=== PATIENT | male | born 1975 | race Caucasian/White ===

== ENCOUNTER 2018-07-22 09:51 | Emergency (ER) | payer MEDICAID ==
[2018-07-22 09:58] VITALS: O2SAT 99
[2018-07-22 09:59] VITALS: BMI 25.8
[2018-07-22] MEDS ORDERED: Sodium Chloride 0.9% 1,000 ML IV STA (10:49)
--- NOTE | 2018-07-22 10:49 | ED PDOC ---
HPI: General Adult Chief Complaint (Provider): abd pain History Per: Patient (42 y/o male here with ongoing abdominal pain intermittent x 2 months associated with abdominal distention and intermittently improved with simethicone. States he was seen at [facility] and given rx for [employer] and simethicone. Was advised f/u for endoscopy but has not done so yet. Denies any fevers /chills. Has h/o appendectomy. Admits smoking 5-6 cig daily. Notes etoh 1/week. No drug activity. Notes pain made worse with occitan food.) <Anamika Perez - Last Filed: 07/22/18 20:33> <Nay Fiore - Last Filed: 07/27/18 11:42> Time Seen by Provider: 07/22/18 10:47 Chief Complaint (Nursing): Abdominal Pain Past Medical History Reviewed: Historical Data, Nursing Documentation, Vital Signs Vital Signs: Last Vital Signs Temp 99 F 07/22/18 09:57 Pulse 74 07/22/18 09:57 Resp 20 07/22/18 09:57 BP 123/70 07/22/18 09:57 Pulse Ox 99 07/22/18 09:57 - Family History Family History: States: No Known Family Hx - Social History Current smoker - smoking cessation education provided: Yes (5-6 per day) Alcohol: Occasional Drugs: Denies - Immunization History Hx Tetanus Toxoid Vaccination: No Hx Influenza Vaccination: No Hx Pneumococcal Vaccination: No <Anamika Perez - Last Filed: 07/22/18 20:33> Vital Signs: Last Vital Signs Temp 98.1 F 07/22/18 21:20 Pulse 79 07/22/18 21:20 Resp 15 07/22/18 21:20 BP 126/74 07/22/18 21:20 Pulse Ox 99 07/22/18 21:20 <Nay Fiore - Last Filed: 07/27/18 11:42> - Home Medications Home Medications: Ambulatory Orders Medication Instructions Recorded Ciprofloxacin HCl [Cipro] 500 mg PO BID #14 tablet 07/22/18 Pantoprazole Sodium [Protonix] 40 mg PO DAILY #15 ect 07/22/18 - Allergies Allergies/Adverse Reactions: Allergies Allergy/AdvReac Type Severity Reaction Status Date / Time No Known Allergies Allergy Verified 12/28/13 12:33 Review of Systems ROS Statement: Except As Marked, All Systems Reviewed And Found Negative <Anamika Perez - Last Filed: 07/22/18 20:33> Physical Exam - Reviewed Nursing Documentation Reviewed: Yes Vital Signs Reviewed: Yes - Physical Exam Appears: Positive for: Well, Non-toxic, No Acute Distress Head Exam: Positive for: ATRAUMATIC, NORMAL INSPECTION, NORMOCEPHALIC Skin: Positive for: Normal Color, Warm, DRY Eye Exam: Positive for: EOMI, Normal appearance, PERRL ENT: Positive for: Normal ENT Inspection Neck: Positive for: Normal, Painless ROM Cardiovascular/Chest: Positive for: Regular Rate, Rhythm Respiratory: Positive for: CNT, Normal Breath Sounds Gastrointestinal/Abdominal: Positive for: Normal Exam, Soft, Tenderness (minimal llq tenderness) Back: Positive for: Normal Inspection Extremity: Positive for: Normal ROM Neurologic/Psych: Positive for: Alert, Oriented <Anamika Perez - Last Filed: 07/22/18 20:33> - Laboratory Results Result Diagrams: 07/22/18 12:30 07/22/18 12:30 - ECG O2 Sat by Pulse Oximetry: 99 - Progress ED Course And Treament: bentyl 20 mg x 1 dose pepcid 20 mg iv x [address] ABD/PELVIS: None. IMPRESSION: Findings consistent with mild enterocolitis. Specifically, the wall of the cecum, adjacent ascending colon is thickened with pericolonic inflammatory changes. Mild dilatation of proximal small bowel with thickening of bowel wall represents the mild enteritis. Additional benign and/or incidental findings described above. patient refused rectal exam here. <PerezAnamika lucio - Last Filed: 07/22/18 20:33> - Laboratory Results Result Diagrams: 07/22/18 12:30 07/22/18 12:30 <Nay Fiore - Last Filed: 07/27/18 11:42> Disposition - Patient ED Disposition Is Patient to be Admitted: No - Disposition Disposition: Routine/Home Disposition Time: 20:06 <Anamika Perez - Last Filed: 07/22/18 20:33> <Nay Fiore - Last Filed: 07/27/18 11:42> - Clinical Impression Clinical Impression: Enterocolitis, Anemia - Disposition Referrals: Avery Gallo MD [Medical Doctor] - [facility] [place] [Outside] Condition: IMPROVED Additional Instructions: FOLLOW UP WITH PMD OR GI IN 2-3 DAYS AND REPEAT YOUR CBC Prescriptions: Ciprofloxacin HCl [Cipro] 500 mg PO BID #14 tablet Pantoprazole Sodium [Protonix] 40 mg PO DAILY #15 ect Instructions: Low Fiber Diet, Acute Abdomen (Belly Pain), Adult (DC) Forms: [facility] ([place]), [facility] ED School/Work Excuse Addendum Addendum: 07/27/18 11:42 Reviewed PA chart. Agree with assessment and plan. <Nay Fiore - Last Filed: 07/27/18 11:42>
[2018-07-22 11:24] LABS: URINE BILIRUBIN NEGATIVE (NEGATIVE); URINE BLOOD NEGATIVE (NEGATIVE); URINE CLARITY CLEAR (Clear); URINE COLOR YELLOW (YELLOW); URINE GLUCOSE (UA) NEG (Normal); URINE LEUKOCYTE ESTERASE NEG Leu/uL (Negative); URINE PROTEIN NEGATIVE (NEGATIVE); URINE UROBILINOGEN 0.2-1.0 mg/dL (0.2-1.0)
[2018-07-22 11:48] LABS: BARBITURATES, UR NEGATIVE (NEGATIVE); BENZODIAZEPINES, UR NEGATIVE (NEGATIVE); OPIATES, UR NEGATIVE (NEGATIVE); PHENCYCLIDINE, UR NEGATIVE (NEGATIVE)
--- NOTE | 2018-07-22 11:52 | RAD ---
Date of service: 07/22/2018 PROCEDURE: Radiographs of the chest and abdomen (obstructive series) HISTORY: abd pain COMPARISON: No prior. TECHNIQUE: AP radiograph of the chest, with upright and supine radiographs of the abdomen. FINDINGS: CHEST: Lungs: Clear. Cardiovascular: Normal size heart. No pulmonary vascular congestion. Pleura: No pleural fluid. No pneumothorax. Other findings: None. ABDOMEN AND PELVIS: Bowel: Unremarkable bowel gas pattern. No evidence of mechanical obstruction. Free air: None. Bones: Unremarkable. Other findings: Small calcifications are identified overlying the plane of the mid and lower pole left renal silhouette. IMPRESSION: Questionable calculi at the left kidney as discussed above. None are seen at the right. No evidence of mechanical bowel obstruction. Nonacute chest radiograph.
[2018-07-22 12:52] LABS: BASO % 0.6 % (0.0-2.0); EOS # 0.3 K/uL (0.0-0.7); EOS % 4.2 % (0.0-4.0); HEMOGLOBIN 8.5 g/dL (12.0-18.0); LYMPH # 1.6 K/uL (1.0-4.3); LYMPH % 23.6 % (20.0-40.0); MEAN CELL VOLUME 68.9 fl (80.0-94.0); MEAN CORPUSCULAR HEMOGLOBIN 20.9 pg (27.0-31.0); MEAN CORPUSCULAR HGB CONC 30.4 g/dL (33.0-37.0); MONO # 0.6 K/uL (0.0-0.8); MONO % 8.2 % (0.0-10.0); NEUT # 4.4 K/uL (1.8-7.0); NEUT % 63.4 % (50.0-75.0); RBC 4.07 Mil/uL (4.40-5.90); WHITE BLOOD COUNT 6.9 K/uL (4.8-10.8)
[2018-07-22 12:54] LABS: ALB/GLOB RATIO 1.2 (1.0-2.1); ALBUMIN 3.7 g/dL (3.5-5.0); ALT/SGPT 25 U/L (21-72); AST/SGOT 16 U/L (17-59); BLOOD UREA NITROGEN 16 mg/dl (9-20); CALCIUM 8.8 mg/dL (8.4-10.2); GFR NON-AFRICAN AMERICAN > 60; LIPASE 83 U/L (23-300)
[2018-07-22] MEDS ORDERED: Iohexol 240 (50 ml) PO ONE (13:41)
[2018-07-22] MEDS ORDERED: Iohexol 300 100 ML IJ ONE (15:54)
[2018-07-22] MEDS ORDERED: Sodium Chloride 0.9% 50 ML IV ONE (15:54)
[2018-07-22] MEDS ORDERED: Iohexol 240 (50 ml) ONE (16:27)
--- NOTE | 2018-07-22 18:45 | CT ---
Date of service: 07/22/2018 PROCEDURE: CT Abdomen and Pelvis with contrast HISTORY: ABDOMINAL PAIN; ANEMIA COMPARISON: None. TECHNIQUE: Intravenous contrast dose: 95 cc Omnipaque 300 Radiation dose: Total exam DLP = 528.82 mGy-cm. This CT exam was performed using one or more of the following dose reduction techniques: Automated exposure control, adjustment of the mA and/or kV according to patient size, and/or use of iterative reconstruction technique. FINDINGS: LOWER THORAX: Unremarkable. LIVER: Simple cyst right hepatic lobe 2 cm. Hepatic steatosis. No focal masses. No intrahepatic bile duct dilatation or perihepatic ascites. GALLBLADDER AND BILE DUCTS: Unremarkable. PANCREAS: Unremarkable. No gross lesion or ductal dilatation. SPLEEN: Unremarkable. ADRENALS: Unremarkable. No mass. KIDNEYS AND URETERS: Solitary nonobstructing calculus 3 mm midpole left kidney.. No hydronephrosis. No solid mass. Incidental finding(s): Sub cm cyst midpole left kidney. VASCULATURE: Unremarkable. No aortic aneurysm. BOWEL: Mild inflammatory changes affecting the ascending colon. Unremarkable terminal ileum. Mild dilatation, thickening of the wall of proximal small bowel without mechanical obstruction. Constipation without fecal impaction or obstruction. APPENDIX: No abnormalities to suggest acute appendicitis. No right lower quadrant inflammatory processes identified. PERITONEUM: Unremarkable. No free fluid. No free air. LYMPH NODES: Unremarkable. No enlarged lymph nodes. BLADDER: Unremarkable. REPRODUCTIVE: Unremarkable. BONES: No acute fracture. OTHER FINDINGS: None. IMPRESSION: Findings consistent with mild enterocolitis. Specifically, the wall of the cecum, adjacent ascending colon is thickened with pericolonic inflammatory changes. Mild dilatation of proximal small bowel with thickening of bowel wall represents the mild enteritis. Additional benign and/or incidental findings described above.
[2018-07-22 21:20] VITALS: BP 126/74; PULSE 79; RESP 15; TEMP 98.1
== END 2018-07-22 21:20 | disposition home or self-care (01) ==
LOC: H.ER 09:51
DX: K52.9 Noninfective gastroenteritis and colitis, unspecified (principal); D64.9 Anemia, unspecified
CPT/HCPCS: 74022; 74177; 80053; 80324; 80345; 80346; 80349; 80353; 80358; 80361; 81003; 83690; 83992; 85025; 96374; 96375; 99283; J2765; J7030; Q9966; Q9967

== ENCOUNTER 2018-08-01 16:52 | Inpatient (IN) | payer MEDICAID ==
[2018-08-01 16:52] VITALS: BMI 25.8
[2018-08-01] MEDS ORDERED: Sodium Chloride 0.9% 1,000 ML IV STA (18:09)
[2018-08-01] MEDS ORDERED: Iohexol 240 (50 ml) PO ONE (18:09)
--- NOTE | 2018-08-01 18:28 | ED PDOC ---
HPI: Abdomen Time Seen by Provider: 08/01/18 18:03 Chief Complaint (Nursing): Abdominal Pain Chief Complaint (Provider): Abdominal pain History Per: Patient History/Exam Limitations: no limitations Onset/Duration Of Symptoms: Days, Persistent Current Symptoms Are (Timing): Still Present Location Of Pain/Discomfort: RUQ, RLQ Quality Of Discomfort: "Pain" Associated Symptoms: Loss Of Appetite Additional History Per: Patient Additional Complaint(s): 42yo male, returns to ER with persistent and worsening abdominal pain, localizing to his right side. Patient reports associated loss of appetite and states his symptoms are unrelieved after taking cipro (prescribed last ER visit.) Prior records reviewed, and patient had hemoglobin of 8.4; patient states he was unaware of prior anemia and does admit to dyspnea on exertion. Patient also reports red colored stools; he reports he was due for a colonoscopy but has not done it as he was unable to secure chairty care. Patient otherwise denies chest pain and offers no additional medical complaints. PMD: None provided Past Medical History Reviewed: Historical Data, Nursing Documentation, Vital Signs Vital Signs: Last Vital Signs Temp 98.7 F 08/01/18 17:48 Pulse 68 08/01/18 17:48 Resp 16 08/01/18 17:48 BP 136/74 08/01/18 17:48 Pulse Ox 100 08/01/18 17:48 - Medical History PMH: No Chronic Diseases - Surgical History Surgical History: Appendectomy - Family History Family History: States: No Known Family Hx - Social History Current smoker - smoking cessation education provided: Yes Alcohol: Occasional Drugs: Denies - Immunization History Hx Tetanus Toxoid Vaccination: No Hx Influenza Vaccination: No Hx Pneumococcal Vaccination: No - Allergies Allergies/Adverse Reactions: Allergies Allergy/AdvReac Type Severity Reaction Status Date / Time No Known Allergies Allergy Verified 08/01/18 17:48 Review of Systems ROS Statement: Except As Marked, All Systems Reviewed And Found Negative Constitutional: Negative for: Fever, Chills Cardiovascular: Negative for: Chest Pain Respiratory: Positive for: SOB with Exertion Gastrointestinal: Positive for: Abdominal Pain, Other (loss of appetite; abnormal stools) Physical Exam - Reviewed Nursing Documentation Reviewed: Yes Vital Signs Reviewed: Yes - Physical Exam Appears: Positive for: Non-toxic Head Exam: Positive for: ATRAUMATIC, NORMAL INSPECTION, NORMOCEPHALIC Skin: Positive for: Pallor Eye Exam: Positive for: Normal appearance Neck: Positive for: Normal, Supple Cardiovascular/Chest: Positive for: Regular Rate, Rhythm Respiratory: Positive for: Normal Breath Sounds Gastrointestinal/Abdominal: Positive for: Soft, Tenderness (tenderness to palpation right upper and lower quadrants). Negative for: Guarding, Rebound Back: Positive for: Normal Inspection. Negative for: L CVA Tenderness, R CVA Tenderness, Vertebral Tenderness Extremity: Positive for: Normal ROM. Negative for: Pedal Edema Neurologic/Psych: Positive for: Alert, Oriented. Negative for: Motor/Sensory Deficits - Laboratory Results Result Diagrams: 08/06/18 05:40 08/06/18 13:40 - ECG O2 Sat by Pulse Oximetry: 100 (RA) Pulse Ox Interpretation: Normal Medical Decision Making Medical Decision Making: Prior charts reviewed; labs to be repeated to r/o worsening anemia. Re-image abdomen, given tenderness on exam. Hgb noted to be 8.8 20:00 Patient signed out to Dr. Murillo pending CT study, reassessment. Scribe Attestation: Documented by Jade Smith, acting as a scribe for Hernesto Diaz DO. Provider Scribe Attestation: All medical record entries made by the Scribe were at my direction and personally dictated by me. I have reviewed the chart and agree that the record accurately reflects my personal performance of the history, physical exam, medical decision making, and the department course for this patient. I have also personally directed, reviewed, and agree with the discharge instructions and disposition. Disposition - Clinical Impression Clinical Impression: Colitis - Patient ED Disposition Is Patient to be Admitted: Transfer of Care Counseled Patient/Family Regarding: Studies Performed, Diagnosis - Disposition Disposition: Transfer of Care Disposition Time: 19:54 Condition: STABLE Patient Signed Over To: Kayden Murillo
[2018-08-01 18:49] LABS: INR 1.1; PROTHROMBIN TIME 11.9 Seconds (9.8-13.1)
[2018-08-01 18:50] LABS: BASO % 0.3 % (0.0-2.0); EOS # 0.2 K/uL (0.0-0.7); HEMOGLOBIN 8.8 g/dL (12.0-18.0); LYMPH % 11.8 % (20.0-40.0); MEAN CELL VOLUME 67.8 fl (80.0-94.0); MEAN CORPUSCULAR HEMOGLOBIN 21.1 pg (27.0-31.0); MEAN CORPUSCULAR HGB CONC 31.1 g/dL (33.0-37.0); MEAN PLATELET VOLUME 7.8 fl (7.2-11.7); MONO # 0.6 K/uL (0.0-0.8); MONO % 6.5 % (0.0-10.0); NEUT # 6.9 K/uL (1.8-7.0); NEUT % 79.4 % (50.0-75.0); NRBC % 0.1 % (0.0-0.0); RBC 4.15 Mil/uL (4.40-5.90); RED CELL DISTRIBUTION WIDTH 17.3 % (11.5-14.5); WHITE BLOOD COUNT 8.7 K/uL (4.8-10.8)
[2018-08-01 18:52] LABS: PARTIAL THROMBOPLASTIN TIME 29.7 Seconds (25.6-37.1)
[2018-08-01] MEDS ORDERED: Iohexol 240 (50 ml) ONE (19:06)
[2018-08-01 19:07] LABS: ALB/GLOB RATIO 1.2 (1.0-2.1); ALT/SGPT 27 U/L (21-72); AST/SGOT 24 U/L (17-59); BLOOD UREA NITROGEN 11 mg/dl (9-20); CALCIUM 9.1 mg/dL (8.4-10.2); GFR NON-AFRICAN AMERICAN > 60
--- NOTE | 2018-08-01 20:08 | ED PDOC ---
- Laboratory Results Result Diagrams: 08/01/18 18:30 08/01/18 18:30 - ECG O2 Sat by Pulse Oximetry: 100 (RA) Pulse Ox Interpretation: Normal Medical Decision Making Medical Decision Makin Patient signed out to me by Dr. Murphy pending CT Abdomen, reassessment. 2209 Patient reports persistent pain, Morphine 4mg IV given. 22:28 Abdomen/Pelvis CT Findings: There is dilatation and pericolonic inflammatory changes in the descending colon and proximal transverse colon. There is a submucosal fat stripe appreciated of the descending colon.there is an 8 mm cystic-like structure at the periphery of the liver. Further evaluated by ultrasound. The remainder of the solid abdominal organs are unremarkable. The gallbladder is benign.there is prominence of the gastric folds. There is no retroperitoneal adenopathy. No free pelvic fluid. The heart is not enlarged. There are no infiltrates or pulmonary base. Impression: Findings consistent with a colitis. Correlate clinically. 23:20 -Discussed case with Dr. Hoffmann, medicine extension service advisor. Labs showed no clinical significant abnormalities. Patient continues to have abdominal pain given recent Cipro and CT that showed mild enterocolitis 10 days ago, will admit for failure of outpatient treatment diagnosis. Diagnosis of enterocolitis. Scribe Attestation: Documented by Jade Smith, acting as a scribe for Kayden Murillo MD. Provider Scribe Attestation: All medical record entries made by the Scribe were at my direction and personally dictated by me. I have reviewed the chart and agree that the record accurately reflects my personal performance of the history, physical exam, medical decision making, and the department course for this patient. I have also personally directed, reviewed, and agree with the discharge instructions and disposition. Disposition Discussed With : Cristino Hoffmann - Clinical Impression Clinical Impression: Colitis - POA Present On Arrival: None - Disposition Disposition: Admitted as In-Patient Disposition Time: 23:20 Condition: STABLE
[2018-08-01] MEDS ORDERED: Sodium Chloride 0.9% 50 ML IV ONE (21:26)
[2018-08-01] MEDS ORDERED: Iohexol 300 100 ML IJ ONE (21:26)
[2018-08-01] MEDS ORDERED: Morphine 4 MG/ML VIAL ONE (22:16)
[2018-08-01] MEDS ORDERED: metroNIDAZOLE 500mg/100ml NS 100 ML IVPB STA (23:12)
[2018-08-01] MEDS ORDERED: Ciprofloxacin 400mg/200ml D5W 400 MG/200 ML BAG IV STA (23:12)
--- NOTE | 2018-08-02 00:32 | CP.PCM.CON ---
History of Present Illness - History of Present Illness History of Present Illness: GI consult note for Dr. Brianne Jones, PGY-2 Pt S & E at bedside at 0005 42F w/no sig PMH consulted for colitis. Pt reports that he was seen on 07/22 for abdominal pain, was discharged on Cipro/flagyl, however did not have money to pay for flagyl, so only took Cipro, decided to cut Cipro in 10/23 for last few doses due to lack of collin resources. Pt reports recurrence of suprapubic abdominal pain 2 days prior to evaluation. Pain radiated diffusely, constant, moderate-severe. Pain re-located to LLQ over time, increased with deep inspiration. Admits to change in BM caliber over last few weeks- now small "marble" like, has to strain when defecating, decreased BM frequency, reports color now more maroon. Reports bright red blood per rectum a few weeks ago with blood noted on toilet paper. Denies melena, diarrhea, F & C, changes in urinary habits, changes in eating habits, CP, SOB, headache, recent travel, other people in household with similar findings. In ED- Afebrile, no leukocytosis. Hgb 8.8 - was 8.5 on 07/22. Album[address] 4[address] ab w/findings consistent with colitis - dilatation and pericolonic inflammatory changes in the descending colon and proximal transverse colon. There is a submucosal fat stripe appreciated of the descending colon.there is an 8 mm cystic-like structure at the periphery of the liver. PMH: Denies PSH: open appendectomy All: NKDA SH: Admits to ETOH use- 1/2 pint [place] w/beer every 2 weeks, admits to tobacco use- #5-6 daily x few months, admits to recent cocaine use due to divorce, job stress etc FH: Denies hx of colon cancer or diseases in family PMD: Denies Review of Systems - Review of Systems All systems: reviewed and no additional remarkable complaints except - Constitutional Constitutional: absent: Chills, Fever, Headache - EENT Eyes: Spots in Vision. absent: Change in Vision Nose/Mouth/Throat: absent: Sore Throat - Cardiovascular Cardiovascular: absent: Chest Pain - Respiratory Respiratory: Pain on Inspiration - Gastrointestinal Gastrointestinal: Abdominal Pain, Change in Bowel Habits, Change in Stool Character, Constipation. absent: Diarrhea, Hematochezia, Melena, Nausea, Temesmus, Vomiting - Genitourinary Genitourinary: absent: Dysuria, Hematuria - Musculoskeletal Musculoskeletal: absent: Back Pain - Integumentary Integumentary: absent: Rash - Neurological Neurological: absent: Weakness - Psychiatric Psychiatric: absent: Change in Appetite Past Patient History - Past Social History Alcohol: Occasional Drugs: Denies - PSYCHIATRIC Hx Substance Use: Yes (ectasy) - SURGICAL HISTORY Hx Appendectomy: Yes Meds Allergies/Adverse Reactions: Allergies Allergy/AdvReac Type Severity Reaction Status Date / Time No Known Allergies Allergy Verified 08/01/18 17:48 Physical Exam - Constitutional Appears: Non-toxic, No Acute Distress - Head Exam Head Exam: ATRAUMATIC, NORMAL INSPECTION, NORMOCEPHALIC - Eye Exam Eye Exam: EOMI, Normal appearance - ENT Exam ENT Exam: Mucous Membranes Moist, Normal Exam - Neck Exam Neck exam: Positive for: Full Rom, Normal Inspection - Respiratory Exam Respiratory Exam: Clear to Auscultation Bilateral, NORMAL BREATHING PATTERN. absent: Prolonged Expiratory Phase, Rales, Rhonchi, Wheezes, Respiratory Distress - Cardiovascular Exam Cardiovascular Exam: REGULAR RHYTHM, +S1, +S2 - GI/Abdominal Exam GI & Abdominal Exam: Guarding (LLQ), Normal Bowel Sounds, Soft, Tenderness (LLQ). absent: Distended, Firm, Hernia, Rebound, Rigid - Rectal Exam Rectal Exam: Deferred - Extremities Exam Extremities exam: Positive for: normal inspection - Back Exam Back exam: NORMAL INSPECTION. absent: CVA tenderness (L), CVA tenderness (R) - Neurological Exam Neurological exam: Alert, CN II-XII Intact, Oriented x3 - Psychiatric Exam Psychiatric exam: Normal Affect, Normal Mood - Skin Skin Exam: Dry, Intact, Normal Color, Warm Results - Vital Signs Recent Vital Signs: Last Vital Signs Temp 98.7 F 08/01/18 17:48 Pulse 68 08/01/18 17:48 Resp 16 08/01/18 17:48 BP 136/74 08/01/18 17:48 Pulse Ox 100 08/01/18 23:30 - Labs Result Diagrams: 08/01/18 18:30 08/01/18 18:30 Labs: Laboratory Results - last 24 hr 08/01/18 08/01/18 08/01/18 18:30 18:30 18:30 WBC 8.7 RBC 4.15 L Hgb 8.8 L Hct 28.1 L MCV 67.8 L MCH 21.1 L MCHC 31.1 L RDW 17.3 H Plt Count 303 MPV 7.8 Neut % (Auto) 79.4 H Lymph % (Auto) 11.8 L Holt % (Auto) 6.5 Eos % (Auto) 2.0 Baso % (Auto) 0.3 Neut # (Auto) 6.9 Lymph # (Auto) 1.0 Holt # (Auto) 0.6 Eos # (Auto) 0.2 Baso # (Auto) 0.0 PT 11.9 INR 1.1 APTT 29.7 Sodium 140 Potassium 3.8 Chloride 109 H Carbon Dioxide 23 Anion Gap 12 BUN 11 Creatinine 0.8 Est GFR ( Amer) > 60 Est GFR (Non-Af Amer) > 60 Random Glucose 108 Calcium 9.1 Magnesium 2.0 Total Bilirubin 0.1 L AST 24 ALT 27 Alkaline Phosphatase 95 Total Protein 7.2 Albumin 4.0 Globulin 3.2 Albumin/Globulin Ratio 1.2 Assessment & Plan - Assessment and Plan (Free Text) Assessment: 42M w/colitis - failed outpatient treatment Plan: FU AM labs NPO IVF Abx Enemas until BM clear Plan for colonoscopy today DW Dr. Storm Jones, PGY-2 - Date & Time Date: 08/02/18 Time: 00:31
[2018-08-02] MEDS ORDERED: Morphine 4 MG/ML VIAL ONE (02:15)
[2018-08-02] MEDS ORDERED: metroNIDAZOLE 500mg/100ml NS 100 ML IVPB ONE (02:16)
[2018-08-02] MEDS ORDERED: Ciprofloxacin 400mg/200ml D5W 400 MG/200 ML BAG IVPB ONE (03:02)
[2018-08-02 06:35] LABS: URINE BILIRUBIN NEGATIVE (NEGATIVE); URINE BLOOD NEGATIVE (NEGATIVE); URINE CLARITY CLEAR (Clear); URINE COLOR COLORLESS (YELLOW); URINE GLUCOSE (UA) NEG (Normal); URINE LEUKOCYTE ESTERASE NEG Leu/uL (Negative); URINE PROTEIN NEGATIVE (NEGATIVE); URINE UROBILINOGEN 0.2-1.0 mg/dL (0.2-1.0)
[2018-08-02] MEDS ORDERED: Chlorhexidine Gluconate 1 APPL/PKT TP ONE (08:27)
[2018-08-02] MEDS ORDERED: Ciprofloxacin 400mg/200ml D5W 400 MG/200 ML BAG IVPB SCH (09:00)
[2018-08-02] MEDS ORDERED: Lactated Ringer's 500 ML IV ONE (09:27)
[2018-08-02] MEDS ORDERED: Propofol 10 mg/ml Inj (20 ML) ONE (09:30)
[2018-08-02] MEDS ORDERED: metroNIDAZOLE 500mg/100ml NS 100 ML IVPB SCH (10:00)
--- NOTE | 2018-08-02 11:23 | CP.PCM.PN ---
Subjective - Date & Time of Evaluation Date of Evaluation: 08/02/18 Time of Evaluation: 11:21 - Subjective Subjective: Just received a call for a consult on pt. He just had a colonoscopy and was found to have a mass in the descending colon.Pt is still in the reciovery room.Will see him tomorrow. Objective - Vital Signs/Intake and Output Vital Signs (last 24 hours): Temp Pulse Resp BP Pulse Ox 97 F L 67 14 110/67 100 08/02/18 10:10 08/02/18 10:10 08/02/18 10:10 08/02/18 10:10 08/02/18 10:10 Intake and Output: 08/02/18 08/02/18 06:59 18:59 Intake Total 100 Balance 100 - Medications Medications: Current Medications Dextrose (Dextrose 5% In Water 1000 Ml) 1,000 mls @ 120 mls/hr IV .[id number] JEROME Stop: 08/03/18 05:42 Last Admin: 08/02/18 06:21 Dose: 120 mls/hr Morphine Sulfate (Morphine) 4 mg IVP Q4 PRN PRN Reason: Pain, severe (8-10) Last Admin: 08/02/18 06:25 Dose: 4 mg Ondansetron HCl (Zofran Inj) 4 mg IVP Q6 PRN PRN Reason: Nausea/Vomiting Last Admin: 08/02/18 08:39 Dose: 4 mg - Labs Labs: 08/01/18 18:30 08/01/18 18:30 PT 11.9 Seconds (9.8-13.1) 08/01/18 18:30 INR 1.1 08/01/18 18:30 APTT 29.7 Seconds (25.6-37.1) 08/01/18 18:30
--- NOTE | 2018-08-02 11:29 | CP.PCM.CON ---
<Anu Back - Last Filed: 08/02/18 11:29> History of Present Illness - History of Present Illness History of Present Illness: Surgery Consult: Dr. Deutsch Pt is a 42M with no significant PMHx who presented to [facility] with abdominal pain. Pt states he has had on & off abdominal pain for the past 3 months that he initially ignored & thought would go away. However, 2 days ago pt started having intense lower quadrant pain with some associated nausea so he came to the ER. Pt also reports coming to the ER two weeks ago, at which point he was told he had colitis and was sent home with PO ABX. Pt reports intermittent episodes of pain since then, however reports he was tolerating a regular diet and having regular BMs. He does admit to some dark stools and bright red blood per rectum a few times. On this admission, pt had a CT abdomen/pelvis in the ER which showed some inflammatory changes and possible mass at the hepatic flexure. GI and surgery consulted to evaluate. Pt underwent a colonoscopy with GI this morning which showed partially obstructing mass in the ascending colon 90cm from the anus with some bleeding. Currently, pt is resting comfortably in bed. States his abdominal pain is well controlled at this time. He states his last BM was this morning and it was loose due to the enema. Denies any BPR, denies nausea/vomiting, fevers/chills, chest pain or SOB. Pt does admit to about a 20lb weight loss in the last 3 months without trying. PMHx: denies PSHx: appendectomy, sinus sx SocialHx: 5-6 cigs/day x 1 yr, 1 bottle of Prerna/week x 1 yr, occasional cocaine use FamilyHx: denies hx of cancer in family NKDA Review of Systems - Review of Systems All systems: reviewed and no additional remarkable complaints except (as per HPI) Past Patient History - Past Social History Alcohol: Occasional Drugs: Denies - CARDIAC Hx Cardiac Disorders: No - PULMONARY Hx Respiratory Disorders: No - NEUROLOGICAL Hx Neurological Disorder: No - HEENT Hx HEENT Problems: No - RENAL Hx Chronic Kidney Disease: No - ENDOCRINE/METABOLIC Hx Endocrine Disorders: No - HEMATOLOGICAL/ONCOLOGICAL Hx Blood Disorders: No - INTEGUMENTARY Hx Dermatological Problems: No - MUSCULOSKELETAL/RHEUMATOLOGICAL Hx Musculoskeletal Disorders: No Hx Falls: No - GASTROINTESTINAL Hx Gastrointestinal Disorders: Yes Hx Colitis: Yes - GENITOURINARY/GYNECOLOGICAL Hx Genitourinary Disorders: No - PSYCHIATRIC Hx Substance Use: Yes (ectasy) - SURGICAL HISTORY Hx Appendectomy: Yes - ANESTHESIA Hx Anesthesia: Yes Hx Anesthesia Reactions: No Hx Malignant Hyperthermia: No Meds Allergies/Adverse Reactions: Allergies Allergy/AdvReac Type Severity Reaction Status Date / Time No Known Allergies Allergy Verified 08/01/18 17:48 - Medications Medications: Current Medications Dextrose (Dextrose 5% In Water 1000 Ml) 1,000 mls @ 120 mls/hr IV .Q8H20M [facility] Stop: 08/03/18 05:42 Last Admin: 08/02/18 06:21 Dose: 120 mls/hr Morphine Sulfate (Morphine) 4 mg IVP Q4 PRN PRN Reason: Pain, severe (8-10) Last Admin: 08/02/18 06:25 Dose: 4 mg Ondansetron HCl (Zofran Inj) 4 mg IVP Q6 PRN PRN Reason: Nausea/Vomiting Last Admin: 08/02/18 08:39 Dose: 4 mg Physical Exam - Constitutional Appears: Well, No Acute Distress - Head Exam Head Exam: ATRAUMATIC, NORMOCEPHALIC - Eye Exam Eye Exam: Normal appearance - ENT Exam ENT Exam: Mucous Membranes Moist - Respiratory Exam Respiratory Exam: NORMAL BREATHING PATTERN - Cardiovascular Exam Cardiovascular Exam: RRR - GI/Abdominal Exam GI & Abdominal Exam: Soft, Tenderness (in the right upper and lower quadrants ). absent: Distended, Guarding - Extremities Exam Extremities exam: Negative for: calf tenderness - Neurological Exam Neurological exam: Alert, Oriented x3 - Skin Skin Exam: Dry, Warm Results - Vital Signs Recent Vital Signs: Last Vital Signs Temp 97 F L 08/02/18 10:10 Pulse 67 08/02/18 10:10 Resp 14 08/02/18 10:10 BP 110/67 08/02/18 10:10 Pulse Ox 100 08/02/18 10:10 - Labs Result Diagrams: 08/01/18 18:30 08/01/18 18:30 Labs: Laboratory Results - last 24 hr 08/01/18 08/01/18 08/01/18 18:30 18:30 18:30 WBC 8.7 RBC 4.15 L Hgb 8.8 L Hct 28.1 L MCV 67.8 L MCH 21.1 L MCHC 31.1 L RDW 17.3 H Plt Count 303 MPV 7.8 Neut % (Auto) 79.4 H Lymph % (Auto) 11.8 L [place] % (Auto) 6.5 Eos % (Auto) 2.0 Baso % (Auto) 0.3 Neut # (Auto) 6.9 Lymph # (Auto) 1.0 [place] # (Auto) 0.6 Eos # (Auto) 0.2 Baso # (Auto) 0.0 PT 11.9 INR 1.1 APTT 29.7 Sodium 140 Potassium 3.8 Chloride 109 H Carbon Dioxide 23 Anion Gap 12 BUN 11 Creatinine 0.8 Est GFR ( Amer) > 60 Est GFR (Non-Af Amer) > 60 Random Glucose 108 Lactic Acid Calcium 9.1 Magnesium 2.0 Total Bilirubin 0.1 L AST 24 ALT 27 Alkaline Phosphatase 95 Total Protein 7.2 Albumin 4.0 Globulin 3.2 Albumin/Globulin Ratio 1.2 Urine Color Urine Clarity Urine pH Ur Specific [place] Urine Protein Urine Glucose (UA) Urine Ketones Urine Blood Urine Nitrate Urine Bilirubin Urine Urobilinogen Ur Leukocyte Esterase Urine RBC (Auto) 08/02/18 08/02/18 05:15 05:27 WBC RBC Hgb Hct MCV MCH MCHC RDW Plt Count MPV Neut % (Auto) Lymph % (Auto) [place] % (Auto) Eos % (Auto) Baso % (Auto) Neut # (Auto) Lymph # (Auto) [place] # (Auto) Eos # (Auto) Baso # (Auto) PT INR APTT Sodium Potassium Chloride Carbon Dioxide Anion Gap BUN Creatinine Est GFR ( Amer) Est GFR (Non-Af Amer) Random Glucose Lactic Acid 1.2 Calcium Magnesium Total Bilirubin AST ALT Alkaline Phosphatase Total Protein Albumin Globulin Albumin/Globulin Ratio Urine Color Colorless Urine Clarity Clear Urine pH 6.0 Ur Specific [place] 1.005 Urine Protein Negative Urine Glucose (UA) Neg Urine Ketones Negative Urine Blood Negative Urine Nitrate Negative Urine Bilirubin Negative Urine Urobilinogen 0.2-1.0 Ur Leukocyte Esterase Neg Urine RBC (Auto) 1 - Imaging and Cardiology CT scan - abdomen Status: Image reviewed by me Assessment & Plan - Assessment and Plan (Free Text) Assessment: 42M with partially obstructing colon mass suspected adenocarcinoma s/p colonoscopy Plan: - f/u pathology results - cont liquid diet as tolerated and monitor bowel function - will plan for surgery once pathology is back as pt is not clinically obstructed at this time - further recs per Dr. La Nena Back <Camilo Deutsch - Last Filed: 08/02/18 12:13> History of Present Illness - History of Present Illness History of Present Illness: Patient was seen and examined at the bedside. Agree with resident's note above. Meds - Medications Medications: Current Medications Dextrose (Dextrose 5% In Water 1000 Ml) 1,000 mls @ 120 mls/hr IV .Q8H20M [facility] Stop: 08/03/18 05:42 Last Admin: 08/02/18 06:21 Dose: 120 mls/hr Morphine Sulfate (Morphine) 4 mg IVP Q4 PRN PRN Reason: Pain, severe (8-10) Last Admin: 08/02/18 06:25 Dose: 4 mg Ondansetron HCl (Zofran Inj) 4 mg IVP Q6 PRN PRN Reason: Nausea/Vomiting Last Admin: 08/02/18 08:39 Dose: 4 mg Physical Exam - Psychiatric Exam Psychiatric exam: Normal Affect, Normal Mood Results - Vital Signs Recent Vital Signs: Last Vital Signs Temp 97 F L 08/02/18 10:10 Pulse 67 08/02/18 10:10 Resp 14 08/02/18 10:10 BP 110/67 08/02/18 10:10 Pulse Ox 100 08/02/18 10:10 - Labs Result Diagrams: 08/02/18 11:33 08/01/18 18:30 Labs: Laboratory Results - last 24 hr 08/01/18 08/01/18 08/01/18 18:30 18:30 18:30 WBC 8.7 RBC 4.15 L Hgb 8.8 L Hct 28.1 L MCV 67.8 L MCH 21.1 L MCHC 31.1 L RDW 17.3 H Plt Count 303 MPV 7.8 Neut % (Auto) 79.4 H Lymph % (Auto) 11.8 L [place] % (Auto) 6.5 Eos % (Auto) 2.0 Baso % (Auto) 0.3 Neut # (Auto) 6.9 Lymph # (Auto) 1.0 [place] # (Auto) 0.6 Eos # (Auto) 0.2 Baso # (Auto) 0.0 PT 11.9 INR 1.1 APTT 29.7 Sodium 140 Potassium 3.8 Chloride 109 H Carbon Dioxide 23 Anion Gap 12 BUN 11 Creatinine 0.8 Est GFR ( Amer) > 60 Est GFR (Non-Af Amer) > 60 Random Glucose 108 Lactic Acid Calcium 9.1 Magnesium 2.0 Total Bilirubin 0.1 L AST 24 ALT 27 Alkaline Phosphatase 95 Total Protein 7.2 Albumin 4.0 Globulin 3.2 Albumin/Globulin Ratio 1.2 LDL Cholesterol Direct Thyroxine (T4) Urine Color Urine Clarity Urine pH Ur Specific [place] Urine Protein Urine Glucose (UA) Urine Ketones Urine Blood Urine Nitrate Urine Bilirubin Urine Urobilinogen Ur Leukocyte Esterase Urine RBC (Auto) 08/02/18 08/02/18 08/02/18 05:15 05:27 11:33 WBC 7.9 RBC 4.28 L Hgb 9.1 L Hct 28.8 L MCV 67.4 L MCH 21.3 L MCHC 31.5 L RDW 17.1 H Plt Count 270 MPV 7.7 Neut % (Auto) 77.8 H Lymph % (Auto) 10.8 L [place] % (Auto) 8.0 Eos % (Auto) 3.1 Baso % (Auto) 0.3 Neut # (Auto) 6.1 Lymph # (Auto) 0.9 L [place] # (Auto) 0.6 Eos # (Auto) 0.2 Baso # (Auto) 0.0 PT INR APTT Sodium Potassium Chloride Carbon Dioxide Anion Gap BUN Creatinine Est GFR ( Amer) Est GFR (Non-Af Amer) Random Glucose Lactic Acid 1.2 Calcium Magnesium Total Bilirubin AST ALT Alkaline Phosphatase Total Protein Albumin Globulin Albumin/Globulin Ratio LDL Cholesterol Direct Thyroxine (T4) Urine Color Colorless Urine Clarity Clear Urine pH 6.0 Ur Specific [place] 1.005 Urine Protein Negative Urine Glucose (UA) Neg Urine Ketones Negative Urine Blood Negative Urine Nitrate Negative Urine Bilirubin Negative Urine Urobilinogen 0.2-1.0 Ur Leukocyte Esterase Neg Urine RBC (Auto) 1 08/02/18 11:33 WBC RBC Hgb Hct MCV MCH MCHC RDW Plt Count MPV Neut % (Auto) Lymph % (Auto) [place] % (Auto) Eos % (Auto) Baso % (Auto) Neut # (Auto) Lymph # (Auto) [place] # (Auto) Eos # (Auto) Baso # (Auto) PT INR APTT Sodium Potassium Chloride Carbon Dioxide Anion Gap BUN Creatinine Est GFR ( Amer) Est GFR (Non-Af Amer) Random Glucose Lactic Acid Calcium Magnesium Total Bilirubin AST ALT Alkaline Phosphatase Total Protein Albumin Globulin Albumin/Globulin Ratio LDL Cholesterol Direct 81 Thyroxine (T4) 8.02 Urine Color Urine Clarity Urine pH Ur Specific [place] Urine Protein Urine Glucose (UA) Urine Ketones Urine Blood Urine Nitrate Urine Bilirubin Urine Urobilinogen Ur Leukocyte Esterase Urine RBC (Auto) Assessment & Plan - Assessment and Plan (Free Text) Plan: - Will follow
--- NOTE | 2018-08-02 11:36 | CT ---
Date of service: 08/01/2018 PROCEDURE: CT Abdomen and Pelvis with contrast HISTORY: persistent abd pain, pallor, repeat CT COMPARISON: 07/22/2018 CT abdomen and pelvis. TECHNIQUE: Intravenous contrast dose: 100 cc Omnipaque 300 Radiation dose: Total exam DLP = 531.72 mGy-cm. This CT exam was performed using one or more of the following dose reduction techniques: Automated exposure control, adjustment of the mA and/or kV according to patient size, and/or use of iterative reconstruction technique. FINDINGS: LOWER THORAX: Unremarkable. LIVER: Unremarkable. No gross lesion or ductal dilatation. Simple cyst right hepatic lobe GALLBLADDER AND BILE DUCTS: Unremarkable. PANCREAS: Unremarkable. No gross lesion or ductal dilatation. SPLEEN: Unremarkable. ADRENALS: Unremarkable. No mass. KIDNEYS AND URETERS: Unremarkable. No hydronephrosis. No solid mass. VASCULATURE: Unremarkable. No aortic aneurysm. BOWEL: Inflammatory changes affecting the ascending colon have improved since the prior study. This has identified an area of asymmetric circumferential narrowing in the hepatic flexure. Proximal to this the ascending colon is distended . The findings are suspicious for neoplasm of the colon. The remainder of the colon is nondistended. APPENDIX: Normal appendix. PERITONEUM: Unremarkable. No free fluid. No free air. LYMPH NODES: Unremarkable. No enlarged lymph nodes. BLADDER: Unremarkable. REPRODUCTIVE: Unremarkable. BONES: No acute fracture. OTHER FINDINGS: None. IMPRESSION: Suspicious mass in the ascending colon. The prior study documented inflammatory changes. Which in the interval have improved identifying a circumferential mass suspicious for neoplasm. Proximal distention of the colon identified. Communication of results: The study was completed at 21:40. Preliminary report provided at 22:28. Final interpretation 11:31. Communication of these findings to nurse involved in the care and management this patient (March) at 10:24.
[2018-08-02 12:02] LABS: BASO % 0.3 % (0.0-2.0); EOS # 0.2 K/uL (0.0-0.7); EOS % 3.1 % (0.0-4.0); HEMOGLOBIN 9.1 g/dL (12.0-18.0); LYMPH # 0.9 K/uL (1.0-4.3); LYMPH % 10.8 % (20.0-40.0); MEAN CELL VOLUME 67.4 fl (80.0-94.0); MEAN CORPUSCULAR HEMOGLOBIN 21.3 pg (27.0-31.0); MEAN CORPUSCULAR HGB CONC 31.5 g/dL (33.0-37.0); MEAN PLATELET VOLUME 7.7 fl (7.2-11.7); MONO # 0.6 K/uL (0.0-0.8); NEUT # 6.1 K/uL (1.8-7.0); NEUT % 77.8 % (50.0-75.0); NRBC % 0.1 % (0.0-0.0); RBC 4.28 Mil/uL (4.40-5.90); RED CELL DISTRIBUTION WIDTH 17.1 % (11.5-14.5); WHITE BLOOD COUNT 7.9 K/uL (4.8-10.8)
[2018-08-02 12:03] LABS: LDL CHOLESTEROL 81 mg/dL (0-129)
[2018-08-02 12:08] LABS: T4 8.02 ug/dl (5.5-11.0)
[2018-08-02 12:22] LABS: ALB/GLOB RATIO 1.1 (1.0-2.1); ALBUMIN 3.7 g/dL (3.5-5.0); ALT/SGPT 26 U/L (21-72); AST/SGOT 22 U/L (17-59); BLOOD UREA NITROGEN 9 mg/dl (9-20); CALCIUM 8.8 mg/dL (8.4-10.2); GFR NON-AFRICAN AMERICAN > 60; HDL CHOLESTEROL 42 MG/DL (30-70)
--- NOTE | 2018-08-02 15:05 | CT ---
Date of service: 08/02/2018 PROCEDURE: CT Chest without contrast HISTORY: Admission, colon mass COMPARISON: None available. TECHNIQUE: Contiguous axial images were obtained through the chest without intravenous contrast enhancement. Sagittal and coronal reconstructions were performed. Radiation dose (DLP): 396.25 mGy-cm. This CT exam was performed using one or more of the following dose reduction techniques: Automated exposure control, adjustment of the mA and/or kV according to patient size, and/or use of iterative reconstruction technique. FINDINGS: LUNGS: Clear lungs. Visualized airway clear MEDIASTINUM: Unremarkable thoracic aorta. No aneurysm. Normal sized heart. Main pulmonary artery unremarkable. No vascular congestion. No lymphadenopathy. PLEURA: No pleural fluid. No pneumothorax. BONES: No fracture. No destructive lesion. UPPER ABDOMEN: Grossly unremarkable. OTHER FINDINGS: None. IMPRESSION: No evidence of thoracic metastasis. Unremarkable examination.
--- NOTE | 2018-08-02 16:18 | RAD ---
Date of service: 08/02/2018 HISTORY: Localization of clip/ [place] view. COMPARISON: No prior. FINDINGS: BOWEL: There is a small amount of oral contrast seen in the cecum and terminal ileum. Bowel gas pattern is unremarkable. There is no hepatic or splenic enlargement appreciated. There are no masses or abnormal intra-abdominal calcifications. There is a metallic radiopaque foreign body projecting over the right upper quadrant of the abdomen. BONES: Normal. OTHER FINDINGS: None. IMPRESSION: No active disease.
--- NOTE | 2018-08-02 17:42 | CP.PCM.HP ---
History of Present Illness - History of Present Illness History of Present Illness: CC: Abdominal pain. 42 y/o M, Hx of substance abuse, recently Dx with Colitis, came in to ER [facility], [place] to be evaluated for generalized abdominal pain, onset about 3 months ago with on and off pain, gradually increased from 2 days [employer] with no relief. Pt appeared in the the ED c/o of abdominal pain more prominent to lower quadrants, described as sharp, severe intensity 8:10, associated to nausea, BM with dark stool and bright red blood color. As per Pt; He was seen in ER [facility] on 07/22/18, Dx with Colitis on CT, was discharged on Cipro and Flagyl, but claims he didn't have enough money to by both medications, so he bought only the Cipro, which he used 1/2 dose to prolong the abx. Worsening symptoms: Found with anemia (Hgb 8.8), also CT Abd/Pelv, showing suspicious mass in the ascending colon. Lack of appetite, loosing about 20 lbs in the past 3 months. Aggravated factor: Failed outpatient treatment. Pt denied: Fever, chills, vomiting, diarrhea, urinary symptoms, CP, palpitations, syncope, SOB, cough, sick contact, recent travel out of [facility]. As per clinical finding and CT, Pt was seen by GI and underwent Colonoscopy with Bx. in AM today, showing: Partially obstructive mass in the ascending colon from anus with some bleeding. Present on Admission - Present on Admission Any Indicators Present on Admission: No Review of Systems - Constitutional Constitutional: Weight Loss, Other (decreased appetite.) - EENT Eyes: Other Ears: Other (negative) Nose/Mouth/Throat: Other (negative) - Cardiovascular Cardiovascular: Other (negative) - Respiratory Respiratory: Other (negative) - Gastrointestinal Gastrointestinal: Abdominal Pain, Change in Stool Character, Hematochezia, Nausea - Genitourinary Genitourinary: Other (negative) - Musculoskeletal Musculoskeletal: Other (negative) - Integumentary Integumentary: Other (negative) - Neurological Neurological: Other (negative) - Psychiatric Psychiatric: Other (negative) - Endocrine Endocrine: Other (negative) - Hematologic/Lymphatic Hematologic: Other (anemia) Past Patient History - Past Medical History & Family History Pertinent Family History: No family Hx of Ca. - Past Social History Smoking Status: Light Smoker < 10 Cigarettes Daily Alcohol: Occasional Drugs: Denies Home Situation {Lives}: Alone - CARDIAC Hx Cardiac Disorders: No - PULMONARY Hx Respiratory Disorders: No - NEUROLOGICAL Hx Neurological Disorder: No - HEENT Hx HEENT Problems: No - RENAL Hx Chronic Kidney Disease: No - ENDOCRINE/METABOLIC Hx Endocrine Disorders: No - HEMATOLOGICAL/ONCOLOGICAL Hx Blood Disorders: No - INTEGUMENTARY Hx Dermatological Problems: No - MUSCULOSKELETAL/RHEUMATOLOGICAL Hx Musculoskeletal Disorders: No Hx Falls: No - GASTROINTESTINAL Hx Gastrointestinal Disorders: Yes Hx Colitis: Yes - GENITOURINARY/GYNECOLOGICAL Hx Genitourinary Disorders: No - PSYCHIATRIC Hx Psychophysiologic Disorder: Yes Hx Depression: Yes Hx Substance Use: Yes (ectasy) - SURGICAL HISTORY Hx Surgeries: Yes Hx Appendectomy: Yes - ANESTHESIA Hx Anesthesia: Yes Hx Anesthesia Reactions: No Hx Malignant Hyperthermia: No Meds Allergies/Adverse Reactions: Allergies Allergy/AdvReac Type Severity Reaction Status Date / Time No Known Allergies Allergy Verified 08/01/18 17:48 Physical Exam - Constitutional Appears: No Acute Distress - Head Exam Head Exam: NORMAL INSPECTION - Eye Exam Eye Exam: PERRL - ENT Exam ENT Exam: Normal Exam - Neck Exam Neck exam: Positive for: Normal Inspection - Respiratory Exam Respiratory Exam: NORMAL BREATHING PATTERN - Cardiovascular Exam Cardiovascular Exam: REGULAR RHYTHM - GI/Abdominal Exam GI & Abdominal Exam: Soft, Tenderness (Rupper and lower quadrant) - Extremities Exam Extremities exam: Positive for: normal inspection - Back Exam Back exam: NORMAL INSPECTION - Neurological Exam Neurological exam: Alert, Oriented x3 - Psychiatric Exam Psychiatric exam: Normal Mood - Skin Skin Exam: Warm Results - Vital Signs Recent Vital Signs: Last Vital Signs Temp 98 F 08/02/18 16:18 Pulse 62 08/02/18 16:18 Resp 18 08/02/18 16:18 BP 114/70 08/02/18 16:18 Pulse Ox 100 08/02/18 16:18 reviewed J.PColleen - Labs Result Diagrams: 08/02/18 11:33 08/02/18 11:33 Labs: Laboratory Results - last 24 hr 08/01/18 08/01/18 08/01/18 18:30 18:30 18:30 WBC 8.7 RBC 4.15 L Hgb 8.8 L Hct 28.1 L MCV 67.8 L MCH 21.1 L MCHC 31.1 L RDW 17.3 H Plt Count 303 MPV 7.8 Neut % (Auto) 79.4 H Lymph % (Auto) 11.8 L [place] % (Auto) 6.5 Eos % (Auto) 2.0 Baso % (Auto) 0.3 Neut # (Auto) 6.9 Lymph # (Auto) 1.0 [place] # (Auto) 0.6 Eos # (Auto) 0.2 Baso # (Auto) 0.0 PT 11.9 INR 1.1 APTT 29.7 Sodium 140 Potassium 3.8 Chloride 109 H Carbon Dioxide 23 Anion Gap 12 BUN 11 Creatinine 0.8 Est GFR ( Amer) > 60 Est GFR (Non-Af Amer) > 60 Random Glucose 108 Lactic Acid Calcium 9.1 Magnesium 2.0 Total Bilirubin 0.1 L AST 24 ALT 27 Alkaline Phosphatase 95 Total Protein 7.2 Albumin 4.0 Globulin 3.2 Albumin/Globulin Ratio 1.2 Triglycerides Cholesterol LDL Cholesterol Direct HDL Cholesterol Carcinoembryonic Ag Thyroxine (T4) TSH 3rd Generation Urine Color Urine Clarity Urine pH Ur Specific [place] Urine Protein Urine Glucose (UA) Urine Ketones Urine Blood Urine Nitrate Urine Bilirubin Urine Urobilinogen Ur Leukocyte Esterase Urine RBC (Auto) HIV-1 Ab Rapid Screen 08/02/18 08/02/18 08/02/18 05:15 05:27 11:33 WBC 7.9 RBC 4.28 L Hgb 9.1 L Hct 28.8 L MCV 67.4 L MCH 21.3 L MCHC 31.5 L RDW 17.1 H Plt Count 270 MPV 7.7 Neut % (Auto) 77.8 H Lymph % (Auto) 10.8 L [place] % (Auto) 8.0 Eos % (Auto) 3.1 Baso % (Auto) 0.3 Neut # (Auto) 6.1 Lymph # (Auto) 0.9 L [place] # (Auto) 0.6 Eos # (Auto) 0.2 Baso # (Auto) 0.0 PT INR APTT Sodium Potassium Chloride Carbon Dioxide Anion Gap BUN Creatinine Est GFR ( Amer) Est GFR (Non-Af Amer) Random Glucose Lactic Acid 1.2 Calcium Magnesium Total Bilirubin AST ALT Alkaline Phosphatase Total Protein Albumin Globulin Albumin/Globulin Ratio Triglycerides Cholesterol LDL Cholesterol Direct HDL Cholesterol Carcinoembryonic Ag Thyroxine (T4) TSH 3rd Generation Urine Color Colorless Urine Clarity Clear Urine pH 6.0 Ur Specific [place] 1.005 Urine Protein Negative Urine Glucose (UA) Neg Urine Ketones Negative Urine Blood Negative Urine Nitrate Negative Urine Bilirubin Negative Urine Urobilinogen 0.2-1.0 Ur Leukocyte Esterase Neg Urine RBC (Auto) 1 HIV-1 Ab Rapid Screen 08/02/18 08/02/18 08/02/18 11:33 11:33 11:33 WBC RBC Hgb Hct MCV MCH MCHC RDW Plt Count MPV Neut % (Auto) Lymph % (Auto) [place] % (Auto) Eos % (Auto) Baso % (Auto) Neut # (Auto) Lymph # (Auto) [place] # (Auto) Eos # (Auto) Baso # (Auto) PT INR APTT Sodium 138 Potassium 4.5 Chloride 104 Carbon Dioxide 28 Anion Gap 11 BUN 9 Creatinine 0.8 Est GFR ( Amer) > 60 Est GFR (Non-Af Amer) > 60 Random Glucose 111 H Lactic Acid Calcium 8.8 Magnesium Total Bilirubin 0.2 AST 22 ALT 26 Alkaline Phosphatase 84 Total Protein 7.0 Albumin 3.7 Globulin 3.3 Albumin/Globulin Ratio 1.1 Triglycerides 156 H Cholesterol 154 LDL Cholesterol Direct 81 HDL Cholesterol 42 Carcinoembryonic Ag 10.4 H Thyroxine (T4) 8.02 TSH 3rd Generation 2.54 Urine Color Urine Clarity Urine pH Ur Specific [place] Urine Protein Urine Glucose (UA) Urine Ketones Urine Blood Urine Nitrate Urine Bilirubin Urine Urobilinogen Ur Leukocyte Esterase Urine RBC (Auto) HIV-1 Ab Rapid Screen Non reactive reviewed J.P. - Imaging and Cardiology CT scan - abdomen Status: Report reviewed by me (J.P.) CT scan - pelvis Status: Report reviewed by me (J.P.) CT scan - chest Status: Report reviewed by me (J.P.) US - abdomen Status: Report reviewed by me (J.P.) Assessment & Plan (1) Mass of colon Status: Acute Priority: High (2) Abdominal pain Status: Acute Priority: High - Assessment and Plan (Free Text) Plan: F/U Pathology report, continue liquid diet, Morphine. GI, Hematology and Surgery consultants appreciated. - Date & Time Date: 08/02/18 Time: 14:00
[2018-08-02] MEDS: Dextrose 5%/0.45% NS 1,000 ML IV SCH (17:55)
--- NOTE | 2018-08-03 08:11 | CP.PCM.PN ---
<Anu Back - Last Filed: 08/03/18 08:07> Subjective - Date & Time of Evaluation Date of Evaluation: 08/03/18 Time of Evaluation: 08:07 - Subjective Subjective: Surgery: Dr. Deutsch Pt seen and examined. No acute overnight events. Pt states he still has some abdominal pain but it's worse upon palpation. He admits to tolerating liquids and denies nausea/vomiting. Pt admits to flatus but hasn't had any more BMs since yesterday. Denies fevers/chills. Objective - Vital Signs/Intake and Output Vital Signs (last 24 hours): Temp Pulse Resp BP Pulse Ox 98.7 F 62 18 110/63 100 08/03/18 08:03 08/03/18 08:03 08/03/18 08:03 08/03/18 08:03 08/03/18 08:03 - Medications Medications: Current Medications Dextrose/Sodium Chloride (Dextrose 5%/0.45% Ns 1000 Ml) 1,000 mls @ 100 mls/hr IV .Q10H JEROME Stop: 08/03/18 17:39 Last Admin: 08/02/18 17:55 Dose: 100 mls/hr Morphine Sulfate (Morphine) 4 mg IVP Q4 PRN PRN Reason: Pain, severe (8-10) Last Admin: 08/02/18 22:00 Dose: 4 mg Ondansetron HCl (Zofran Inj) 4 mg IVP Q6 PRN PRN Reason: Nausea/Vomiting Last Admin: 08/02/18 17:38 Dose: 4 mg - Labs Labs: 08/02/18 11:33 08/02/18 11:33 PT 11.9 Seconds (9.8-13.1) 08/01/18 18:30 INR 1.1 08/01/18 18:30 APTT 29.7 Seconds (25.6-37.1) 08/01/18 18:30 - Constitutional Appears: No Acute Distress - Head Exam Head Exam: ATRAUMATIC, NORMOCEPHALIC - Eye Exam Eye Exam: Normal appearance - ENT Exam ENT Exam: Mucous Membranes Moist - Respiratory Exam Respiratory Exam: NORMAL BREATHING PATTERN - Cardiovascular Exam Cardiovascular Exam: RRR - GI/Abdominal Exam GI & Abdominal Exam: Soft, Tenderness (right upper/lower quadrants mostly ). absent: Distended, Guarding, Rebound - Extremities Exam Extremities Exam: absent: Calf Tenderness - Neurological Exam Neurological Exam: Alert, Awake, Oriented x3 - Skin Skin Exam: Dry, Warm Assessment and Plan - Assessment and Plan (Free Text) Assessment: 42M with mass in ascending colon/hepatic flexure suspicious for adenocarcinoma s/p colonoscopy Plan: - cont on liquid diet until surgery due to partially obstructing mass - will f/u path results and plan for OR accordingly - CT chest/abdomen/pelvis negative for mets - if continues to have bowel function, pt may be amenable to outpt f/u next week for elective colon resection - will d/w Dr. La Nena Back <Camilo Deutsch - Last Filed: 08/03/18 17:55> Subjective - Date & Time of Evaluation Time of Evaluation: 17:35 - Subjective Subjective: Patient was seen and examined at the bedside. Agree with resident's note above. Tolerating clear liquid diet, states that abdominal pain has improved, passing flatus, no bowel movements today. Objective - Vital Signs/Intake and Output Vital Signs (last 24 hours): Temp Pulse Resp BP Pulse Ox 98 F 58 L 18 127/80 100 08/03/18 16:12 08/03/18 16:12 08/03/18 16:12 08/03/18 16:12 08/03/18 16:12 - Medications Medications: Current Medications Morphine Sulfate (Morphine) 4 mg IVP Q4 PRN PRN Reason: Pain, severe (8-10) Last Admin: 08/03/18 16:19 Dose: 4 mg Ondansetron HCl (Zofran Inj) 4 mg IVP Q6 PRN PRN Reason: Nausea/Vomiting Last Admin: 08/02/18 17:38 Dose: 4 mg - Labs Labs: 08/02/18 11:33 08/02/18 11:33 PT 11.9 Seconds (9.8-13.1) 08/01/18 18:30 INR 1.1 08/01/18 18:30 APTT 29.7 Seconds (25.6-37.1) 08/01/18 18:30 - GI/Abdominal Exam Additional comments: soft, mildly tender on the right side, ND, BS+, no rebound, no guarding Assessment and Plan - Assessment and Plan (Free Text) Plan: - Will await for pathology - Will require colectomy once pathology is back - Will follow
[2018-08-03] MEDS: Dextrose 5%/0.45% NS 1,000 ML IV SCH ×2 (08:12)
--- NOTE | 2018-08-03 11:53 | CP.PCM.CON ---
History of Present Illness - History of Present Illness History of Present Illness: This is a 42 yrs old male who was seen on 07/22 for abdominal pain and was treated with cipro and flagyl, but he stopped taking the medicine early because he could not afford it. This time he came in for rectal bleeding on a couple of occasions, and recurrent suprapubic pain., which then spread to the LLQ. He had no loss of appetite, nausea or vomiting..Yesterday he had a colonoscopy which showed a core lesion in the sigmoid colon, and thickening of the ascending colon as well. CT scan did not show any liver metastasis. P/H h/o alcohol abuse with 1 hennesy followed by beer every 2 weeks, Smokes 5-6 cigs /day, has also used cocaine due to depression from divorce Past Patient History - Past Social History Smoking Status: Light Smoker < 10 Cigarettes Daily Alcohol: Occasional Drugs: Denies Home Situation {Lives}: Alone - CARDIAC Hx Cardiac Disorders: No - PULMONARY Hx Respiratory Disorders: No - NEUROLOGICAL Hx Neurological Disorder: No - HEENT Hx HEENT Problems: No - RENAL Hx Chronic Kidney Disease: No - ENDOCRINE/METABOLIC Hx Endocrine Disorders: No - HEMATOLOGICAL/ONCOLOGICAL Hx Blood Disorders: No - INTEGUMENTARY Hx Dermatological Problems: No - MUSCULOSKELETAL/RHEUMATOLOGICAL Hx Musculoskeletal Disorders: No Hx Falls: No - GASTROINTESTINAL Hx Gastrointestinal Disorders: Yes Hx Colitis: Yes - GENITOURINARY/GYNECOLOGICAL Hx Genitourinary Disorders: No - PSYCHIATRIC Hx Psychophysiologic Disorder: Yes Hx Depression: Yes Hx Substance Use: Yes (ectasy) - SURGICAL HISTORY Hx Surgeries: Yes Hx Appendectomy: Yes - ANESTHESIA Hx Anesthesia: Yes Hx Anesthesia Reactions: No Hx Malignant Hyperthermia: No Meds Allergies/Adverse Reactions: Allergies Allergy/AdvReac Type Severity Reaction Status Date / Time No Known Allergies Allergy Verified 08/01/18 17:48 - Medications Medications: Current Medications Dextrose/Sodium Chloride (Dextrose 5%/0.45% Ns 1000 Ml) 1,000 mls @ 100 mls/hr IV .Q10H JEROME Stop: 08/03/18 17:39 Last Admin: 08/03/18 08:12 Dose: 100 mls/hr Morphine Sulfate (Morphine) 4 mg IVP Q4 PRN PRN Reason: Pain, severe (8-10) Last Admin: 08/03/18 11:08 Dose: 4 mg Ondansetron HCl (Zofran Inj) 4 mg IVP Q6 PRN PRN Reason: Nausea/Vomiting Last Admin: 08/02/18 17:38 Dose: 4 mg Physical Exam - Additional Findings Additional findings: Physical exam; Alert,well oriented in no acute distress neck; Supple, no adenopathty Chest; Air entry good , matt or rhonchi Heart; RSR, no murmur Abd; Soft, no mass palpable, but pt has tenderness in the LLQ Results - Vital Signs Recent Vital Signs: Last Vital Signs Temp 98.7 F 08/03/18 08:03 Pulse 62 08/03/18 08:03 Resp 18 08/03/18 08:03 BP 110/63 08/03/18 08:03 Pulse Ox 100 08/03/18 08:03 - Labs Result Diagrams: 08/02/18 11:33 08/02/18 11:33 Labs: Laboratory Results - last 24 hr 08/02/18 08/02/18 08/02/18 11:33 11:33 11:33 WBC 7.9 RBC 4.28 L Hgb 9.1 L Hct 28.8 L MCV 67.4 L MCH 21.3 L MCHC 31.5 L RDW 17.1 H Plt Count 270 MPV 7.7 Neut % (Auto) 77.8 H Lymph % (Auto) 10.8 L [place] % (Auto) 8.0 Eos % (Auto) 3.1 Baso % (Auto) 0.3 Neut # (Auto) 6.1 Lymph # (Auto) 0.9 L [place] # (Auto) 0.6 Eos # (Auto) 0.2 Baso # (Auto) 0.0 Sodium 138 Potassium 4.5 Chloride 104 Carbon Dioxide 28 Anion Gap 11 BUN 9 Creatinine 0.8 Est GFR ( Amer) > 60 Est GFR (Non-Af Amer) > 60 Random Glucose 111 H Calcium 8.8 Total Bilirubin 0.2 AST 22 ALT 26 Alkaline Phosphatase 84 Total Protein 7.0 Albumin 3.7 Globulin 3.3 Albumin/Globulin Ratio 1.1 Triglycerides 156 H Cholesterol 154 LDL Cholesterol Direct 81 HDL Cholesterol 42 Carcinoembryonic Ag Thyroxine (T4) 8.02 TSH 3rd Generation 2.54 HIV-1 Ab Rapid Screen Non reactive 08/02/18 11:33 WBC RBC Hgb Hct MCV MCH MCHC RDW Plt Count MPV Neut % (Auto) Lymph % (Auto) [place] % (Auto) Eos % (Auto) Baso % (Auto) Neut # (Auto) Lymph # (Auto) [place] # (Auto) Eos # (Auto) Baso # (Auto) Sodium Potassium Chloride Carbon Dioxide Anion Gap BUN Creatinine Est GFR ( Amer) Est GFR (Non-Af Amer) Random Glucose Calcium Total Bilirubin AST ALT Alkaline Phosphatase Total Protein Albumin Globulin Albumin/Globulin Ratio Triglycerides Cholesterol LDL Cholesterol Direct HDL Cholesterol Carcinoembryonic Ag 10.4 H Thyroxine (T4) TSH 3rd Generation HIV-1 Ab Rapid Screen Assessment & Plan - Assessment and Plan (Free Text) Assessment: impression; Mass in the left decending colon, final path report not yet available H/o alcohol abuse
--- NOTE | 2018-08-03 16:07 | CP.PCM.PN ---
Subjective - Date & Time of Evaluation Date of Evaluation: 08/03/18 Time of Evaluation: 14:00 - Subjective Subjective: F/U Mass of Colon. Pt c/o of RLQ pain, on clear fluid. Objective - Vital Signs/Intake and Output Vital Signs (last 24 hours): Temp Pulse Resp BP Pulse Ox 98.7 F 62 18 110/63 100 08/03/18 08:03 08/03/18 08:03 08/03/18 08:03 08/03/18 08:03 08/03/18 08:03 - Medications Medications: Current Medications Morphine Sulfate (Morphine) 4 mg IVP Q4 PRN PRN Reason: Pain, severe (8-10) Last Admin: 08/03/18 11:08 Dose: 4 mg Ondansetron HCl (Zofran Inj) 4 mg IVP Q6 PRN PRN Reason: Nausea/Vomiting Last Admin: 08/02/18 17:38 Dose: 4 mg - Labs Labs: 08/02/18 11:33 08/02/18 11:33 PT 11.9 Seconds (9.8-13.1) 08/01/18 18:30 INR 1.1 08/01/18 18:30 APTT 29.7 Seconds (25.6-37.1) 08/01/18 18:30 - Constitutional Appears: No Acute Distress - Head Exam Head Exam: NORMAL INSPECTION - Eye Exam Eye Exam: PERRL - ENT Exam ENT Exam: Normal Exam - Neck Exam Neck Exam: Normal Inspection - Respiratory Exam Respiratory Exam: NORMAL BREATHING PATTERN - Cardiovascular Exam Cardiovascular Exam: REGULAR RHYTHM - GI/Abdominal Exam GI & Abdominal Exam: Soft, Tenderness ( RLQ > RUQ). absent: Guarding, Rebound - Extremities Exam Extremities Exam: Normal Inspection - Back Exam Back Exam: NORMAL INSPECTION - Neurological Exam Neurological Exam: Alert, Oriented x3 - Psychiatric Exam Psychiatric exam: Normal Mood - Skin Skin Exam: Warm Assessment and Plan (1) Mass of colon Status: Acute (2) Abdominal pain Status: Acute - Assessment and Plan (Free Text) Plan: Discussed with Dr Deutsch f/u Pathology report on Sunday, there after to be scheduled for surgery.
[2018-08-03] MEDS ORDERED: Alum-Mag Hydrox-Simethicone Susp (30 mL) PO ONE (22:52)
--- NOTE | 2018-08-04 07:39 | CP.PCM.PN ---
<Anu Back - Last Filed: 08/04/18 07:37> Subjective - Date & Time of Evaluation Date of Evaluation: 08/04/18 Time of Evaluation: 07:37 - Subjective Subjective: Surgery: Dr. Deutsch Pt seen and examined. No acute events overnight. States he feels well and denies any complaints at this time. He admits to tolerating liquid diet and states he's hungry and would like to eat more. Admits to some cramping in the abdomen that he attributes to "hunger pains." Admits to flatus. Denies nausea/vomiting, fevers/chills. Objective - Vital Signs/Intake and Output Vital Signs (last 24 hours): Temp Pulse Resp BP Pulse Ox 97.7 F 61 19 118/61 98 08/04/18 00:00 08/04/18 00:00 08/04/18 00:00 08/04/18 00:00 08/04/18 00:00 - Medications Medications: Current Medications Morphine Sulfate (Morphine) 4 mg IVP Q4 PRN PRN Reason: Pain, severe (8-10) Last Admin: 08/03/18 22:26 Dose: 4 mg Ondansetron HCl (Zofran Inj) 4 mg IVP Q6 PRN PRN Reason: Nausea/Vomiting Last Admin: 08/02/18 17:38 Dose: 4 mg - Labs Labs: 08/02/18 11:33 08/02/18 11:33 PT 11.9 Seconds (9.8-13.1) 08/01/18 18:30 INR 1.1 08/01/18 18:30 APTT 29.7 Seconds (25.6-37.1) 08/01/18 18:30 - Constitutional Appears: Well, No Acute Distress - Head Exam Head Exam: ATRAUMATIC, NORMOCEPHALIC - Eye Exam Eye Exam: Normal appearance - ENT Exam ENT Exam: Mucous Membranes Moist - Respiratory Exam Respiratory Exam: NORMAL BREATHING PATTERN - Cardiovascular Exam Cardiovascular Exam: RRR - GI/Abdominal Exam GI & Abdominal Exam: Soft, Tenderness (RLQ ). absent: Distended, Guarding, Rebound - Neurological Exam Neurological Exam: Alert, Awake, Oriented x3 - Skin Skin Exam: Dry, Warm Assessment and Plan - Assessment and Plan (Free Text) Assessment: 42M with ascending colon/hepatic flexure mass suspicious for adenocarcinoma s/p colonoscopy Plan: - cont liquid diet as pt is partially obstructed - f/u path - plan for OR this coming week pending path results - d/w Dr. La Nnea Back <Camilo Deutsch - Last Filed: 08/04/18 17:00> Subjective - Date & Time of Evaluation Time of Evaluation: 16:30 - Subjective Subjective: Patient was seen and examined at the bedside. Agree with resident's note above. Objective - Vital Signs/Intake and Output Vital Signs (last 24 hours): Temp Pulse Resp BP Pulse Ox 98.9 F 84 18 123/78 100 08/04/18 16:56 08/04/18 16:56 08/04/18 16:56 08/04/18 16:56 08/04/18 16:56 - Medications Medications: Current Medications Morphine Sulfate (Morphine) 4 mg IVP Q4 PRN PRN Reason: Pain, severe (8-10) Last Admin: 08/03/18 22:26 Dose: 4 mg Ondansetron HCl (Zofran Inj) 4 mg IVP Q6 PRN PRN Reason: Nausea/Vomiting Last Admin: 08/02/18 17:38 Dose: 4 mg - Labs Labs: 08/02/18 11:33 08/02/18 11:33 PT 11.9 Seconds (9.8-13.1) 08/01/18 18:30 INR 1.1 08/01/18 18:30 APTT 29.7 Seconds (25.6-37.1) 08/01/18 18:30
--- NOTE | 2018-08-04 17:02 | CP.PCM.PN ---
Subjective - Date & Time of Evaluation Date of Evaluation: 08/04/18 Time of Evaluation: 10:30 - Subjective Subjective: F/U Colon Mass No c/o of abdominal pain now, feels better today, tolerating liquid diet well. Objective - Vital Signs/Intake and Output Vital Signs (last 24 hours): Temp Pulse Resp BP Pulse Ox 98.9 F 84 18 123/78 100 08/04/18 16:56 08/04/18 16:56 08/04/18 16:56 08/04/18 16:56 08/04/18 16:56 - Medications Medications: Current Medications Morphine Sulfate (Morphine) 4 mg IVP Q4 PRN PRN Reason: Pain, severe (8-10) Last Admin: 08/03/18 22:26 Dose: 4 mg Ondansetron HCl (Zofran Inj) 4 mg IVP Q6 PRN PRN Reason: Nausea/Vomiting Last Admin: 08/02/18 17:38 Dose: 4 mg - Labs Labs: 08/02/18 11:33 08/02/18 11:33 PT 11.9 Seconds (9.8-13.1) 08/01/18 18:30 INR 1.1 08/01/18 18:30 APTT 29.7 Seconds (25.6-37.1) 08/01/18 18:30 - Constitutional Appears: No Acute Distress - Head Exam Head Exam: NORMAL INSPECTION - Eye Exam Eye Exam: PERRL - ENT Exam ENT Exam: Normal Exam - Neck Exam Neck Exam: Normal Inspection - Respiratory Exam Respiratory Exam: Clear to Ausculation Bilateral - Cardiovascular Exam Cardiovascular Exam: REGULAR RHYTHM - GI/Abdominal Exam GI & Abdominal Exam: Soft, Tenderness (RUQ> RLQ). absent: Guarding, Rebound - Extremities Exam Extremities Exam: Normal Inspection - Back Exam Back Exam: NORMAL INSPECTION - Neurological Exam Neurological Exam: Alert, Oriented x3 Additional comments: No motor/sensory deficit. - Psychiatric Exam Psychiatric exam: Normal Mood - Skin Skin Exam: Warm Assessment and Plan (1) Mass of colon Status: Acute (2) Abdominal pain Status: Acute - Assessment and Plan (Free Text) Plan: Continue Liquid diet, f/u Pathology report on Sunday. [employer] database consultant awaiting for Pathology for OR next week.
--- NOTE | 2018-08-05 10:31 | CP.PCM.PN ---
Subjective - Date & Time of Evaluation Date of Evaluation: 08/05/18 Time of Evaluation: 10:27 - Subjective Subjective: General Surgery Pt seen and examined this AM. He denies having abdominal pain. (+) flatus, (-) BM. He wants to eat solids, but understands why he can only have liquids at this time. Pathology pending. Labs and vitals noted. PE Gen: Pt laying in bed in NAD Skin: warm and dry Cardio: s1s2 RRR Lungs: CTA bilaterally Abd: Soft, (+) mild RUQ tenderness, (+) well healed surgical scar at the RLQ c/w with open appendectomy A/P Colon Mass Pending pathology Pt will need surgery after pathology resulted Continue full liquids Objective - Vital Signs/Intake and Output Vital Signs (last 24 hours): Temp Pulse Resp BP Pulse Ox 98.0 F 57 L 19 132/77 99 08/05/18 09:16 08/05/18 09:16 08/05/18 09:16 08/05/18 09:16 08/05/18 09:16 - Medications Medications: Current Medications Morphine Sulfate (Morphine) 4 mg IVP Q4 PRN PRN Reason: Pain, severe (8-10) Last Admin: 08/03/18 22:26 Dose: 4 mg Ondansetron HCl (Zofran Inj) 4 mg IVP Q6 PRN PRN Reason: Nausea/Vomiting Last Admin: 08/02/18 17:38 Dose: 4 mg - Labs Labs: 08/02/18 11:33 08/02/18 11:33 PT 11.9 Seconds (9.8-13.1) 08/01/18 18:30 INR 1.1 08/01/18 18:30 APTT 29.7 Seconds (25.6-37.1) 08/01/18 18:30
[2018-08-05 11:48] LABS: IRON 19 ug/dL (49-181)
[2018-08-05 11:57] LABS: % IRON SATURATION 4 % (20-55); TOTAL IRON BINDING CAPACITY 476 ug/dL (250-450)
[2018-08-05 13:33] LABS: FERRITIN 9.1 ng/Ml (17.9-464)
--- NOTE | 2018-08-05 13:45 | CP.PCM.PCO ---
Assessment & Plan - Assessment and Plan (Free Text) Assessment: colon mass bx pathology preliminary report: Adenocarcinoma, mod. differentiated as per sample sent for MSI above findings d/w , , Dr. Inman and pt. scheduled for OR on Sunday
[2018-08-05 16:49] LABS: FOLATE 9.1 ng/mL
--- NOTE | 2018-08-05 17:43 | CP.PCM.PN ---
Subjective - Date & Time of Evaluation Date of Evaluation: 08/05/18 Time of Evaluation: 11:00 - Subjective Subjective: F/U Mass of Colon. Pain RUQ, RLQ Objective - Vital Signs/Intake and Output Vital Signs (last 24 hours): Temp Pulse Resp BP Pulse Ox 98.4 F 61 18 109/74 100 08/05/18 16:32 08/05/18 16:32 08/05/18 16:32 08/05/18 16:32 08/05/18 16:32 - Medications Medications: Current Medications Epoetin Manolo (Procrit) 10,000 unit [facility] Iron Sucrose 100 mg/ Sodium (Chloride) 105 mls @ 105 mls/hr IVPB DAILY [facility] Last Admin: 08/05/18 17:00 Dose: 105 mls/hr Morphine Sulfate (Morphine) 4 mg IVP Q4 PRN PRN Reason: Pain, severe (8-10) Last Admin: 08/05/18 16:55 Dose: 4 mg Ondansetron HCl (Zofran Inj) 4 mg IVP Q6 PRN PRN Reason: Nausea/Vomiting Last Admin: 08/02/18 17:38 Dose: 4 mg Pantoprazole Sodium (Protonix Inj) 40 mg IVP DAILY [facility] Last Admin: 08/05/18 17:00 Dose: 40 mg - Labs Labs: 08/02/18 11:33 08/02/18 11:33 PT 11.9 Seconds (9.8-13.1) 08/01/18 18:30 INR 1.1 08/01/18 18:30 APTT 29.7 Seconds (25.6-37.1) 08/01/18 18:30 - Head Exam Head Exam: NORMAL INSPECTION - Eye Exam Eye Exam: PERRL - ENT Exam ENT Exam: Normal Exam - Neck Exam Neck Exam: Normal Inspection - Respiratory Exam Respiratory Exam: NORMAL BREATHING PATTERN - Cardiovascular Exam Cardiovascular Exam: REGULAR RHYTHM - GI/Abdominal Exam GI & Abdominal Exam: Tenderness (RUQ, RLQ). absent: Guarding, Rebound - Extremities Exam Extremities Exam: Normal Inspection - Back Exam Back Exam: NORMAL INSPECTION - Neurological Exam Neurological Exam: Alert, CN II-XII Intact, Oriented x3 - Psychiatric Exam Psychiatric exam: Normal Mood - Skin Skin Exam: Warm Assessment and Plan (1) Mass of colon Status: Acute (2) Abdominal pain Status: Acute - Assessment and Plan (Free Text) Plan: Pathology verbal report [place] Ca, f/u with hematology oncology consultant for OR
[2018-08-05] MEDS: EPOETIN ALFA 10,000 UNIT/ML ML SC SCH (18:29)
--- NOTE | 2018-08-05 20:15 | CP.PCM.PN ---
Subjective - Date & Time of Evaluation Date of Evaluation: 08/05/18 Time of Evaluation: 12:00 - Subjective Subjective: Patient without complaint. Had colonoscopy Sunday. Objective - Vital Signs/Intake and Output Vital Signs (last 24 hours): Temp Pulse Resp BP Pulse Ox 98.4 F 61 18 109/74 100 08/05/18 16:32 08/05/18 16:32 08/05/18 16:32 08/05/18 16:32 08/05/18 16:32 - Medications Medications: Current Medications Epoetin Manolo (Procrit) 10,000 unit [place] MWF [facility] Last Admin: 08/05/18 18:29 Dose: 10,000 unit Iron Sucrose 100 mg/ Sodium (Chloride) 105 mls @ 105 mls/hr IVPB DAILY [facility] Last Admin: 08/05/18 17:00 Dose: 105 mls/hr Morphine Sulfate (Morphine) 4 mg IVP Q4 PRN PRN Reason: Pain, severe (8-10) Last Admin: 08/05/18 16:55 Dose: 4 mg Ondansetron HCl (Zofran Inj) 4 mg IVP Q6 PRN PRN Reason: Nausea/Vomiting Last Admin: 08/02/18 17:38 Dose: 4 mg Pantoprazole Sodium (Protonix Inj) 40 mg IVP DAILY [facility] Last Admin: 08/05/18 17:00 Dose: 40 mg - Labs Labs: 08/02/18 11:33 08/02/18 11:33 PT 11.9 Seconds (9.8-13.1) 08/01/18 18:30 INR 1.1 08/01/18 18:30 APTT 29.7 Seconds (25.6-37.1) 08/01/18 18:30 - Head Exam Head Exam: ATRAUMATIC - Eye Exam Eye Exam: Normal appearance - ENT Exam ENT Exam: Mucous Membranes Moist - Respiratory Exam Respiratory Exam: Clear to Ausculation Bilateral - Cardiovascular Exam Cardiovascular Exam: REGULAR RHYTHM - GI/Abdominal Exam GI & Abdominal Exam: Soft, Normal Bowel Sounds Assessment and Plan (1) Mass of colon Assessment & Plan: Biopsy of hepatic flexure colon mass showed moderately differentiated adenocarcinoma. CT chest negative and cea somewhat elevated at 10. Patient being seen by Oncology. For surgical resection Sunday. Status: Acute
[2018-08-05] MEDS ORDERED: guaiFENesin DM 200 mg-20 mg/10 ml UD PO ONE (23:30)
[2018-08-06 06:03] LABS: HEMOGLOBIN 9.5 g/dL (12.0-18.0); MEAN CELL VOLUME 67.4 fl (80.0-94.0); MEAN CORPUSCULAR HEMOGLOBIN 20.9 pg (27.0-31.0); RBC 4.57 Mil/uL (4.40-5.90); RED CELL DISTRIBUTION WIDTH 17.2 % (11.5-14.5); WHITE BLOOD COUNT 6.2 K/uL (4.8-10.8)
[2018-08-06 06:13] LABS: BLOOD UREA NITROGEN 12 mg/dl (9-20); CALCIUM 9.2 mg/dL (8.4-10.2); GFR NON-AFRICAN AMERICAN > 60
--- NOTE | 2018-08-06 09:34 | CP.PCM.PN ---
Subjective - Date & Time of Evaluation Date of Evaluation: 08/06/18 Time of Evaluation: 09:31 - Subjective Subjective: General Surgery Pt seen and examined this AM. Tolerating liquids. (-) N/V. (+) flatus. LBM: last night 08/05 and normal. Pt aware of pathology findings and is pending OR. Labs and vitals noted. PE Gen: Pt laying in bed in NAD Skin: warm and dry Cardio: s1s2 RRR Lungs: CTA bilaterally Abd: Soft ntnd A/P Adenocarcinoma of colon OR now likely on 08/08 () for resection Clear liquids now Pt will need bowel prep the afternoon before surgery Monitor labs Objective - Vital Signs/Intake and Output Vital Signs (last 24 hours): Temp Pulse Resp BP Pulse Ox 97.8 F 78 18 115/62 98 08/06/18 08:23 08/06/18 08:23 08/06/18 08:23 08/06/18 08:23 08/06/18 08:23 - Medications Medications: Current Medications Epoetin Manolo (Procrit) 10,000 unit SC MWF [facility] Last Admin: 08/05/18 18:29 Dose: 10,000 unit Iron Sucrose 100 mg/ Sodium (Chloride) 105 mls @ 105 mls/hr IVPB DAILY [facility] Last Admin: 08/06/18 09:20 Dose: 105 mls/hr Lactated Ringer's (Lactated Ringer's) 1,000 mls @ 125 mls/hr IV .Q8H [facility] Morphine Sulfate (Morphine) 4 mg IVP Q4 PRN PRN Reason: Pain, severe (8-10) Last Admin: 08/06/18 00:11 Dose: 4 mg Ondansetron HCl (Zofran Inj) 4 mg IVP Q6 PRN PRN Reason: Nausea/Vomiting Last Admin: 08/02/18 17:38 Dose: 4 mg Pantoprazole Sodium (Protonix Inj) 40 mg IVP DAILY [facility] Last Admin: 08/06/18 09:15 Dose: 40 mg - Labs Labs: 08/06/18 05:40 08/06/18 05:40 PT 11.9 Seconds (9.8-13.1) 08/01/18 18:30 INR 1.1 08/01/18 18:30 APTT 29.7 Seconds (25.6-37.1) 08/01/18 18:30
--- NOTE | 2018-08-06 11:10 | CP.PCM.PN ---
Subjective - Date & Time of Evaluation Date of Evaluation: 08/06/18 Time of Evaluation: 12:20 - Subjective Subjective: F/U Colon Mass. Pt c/o of mild RLQ pain. Objective - Vital Signs/Intake and Output Vital Signs (last 24 hours): Temp Pulse Resp BP Pulse Ox 97.8 F 78 18 115/62 98 08/06/18 08:23 08/06/18 08:23 08/06/18 08:23 08/06/18 08:23 08/06/18 08:23 - Medications Medications: Current Medications Epoetin Manolo (Procrit) 10,000 unit SC MWF [facility] Last Admin: 08/05/18 18:29 Dose: 10,000 unit Iron Sucrose 100 mg/ Sodium (Chloride) 105 mls @ 105 mls/hr IVPB DAILY [facility] Last Admin: 08/06/18 09:20 Dose: 105 mls/hr Lactated Ringer's (Lactated Ringer's) 1,000 mls @ 125 mls/hr IV .Q8H [facility] Morphine Sulfate (Morphine) 4 mg IVP Q4 PRN PRN Reason: Pain, severe (8-10) Last Admin: 08/06/18 00:11 Dose: 4 mg Ondansetron HCl (Zofran Inj) 4 mg IVP Q6 PRN PRN Reason: Nausea/Vomiting Last Admin: 08/02/18 17:38 Dose: 4 mg Pantoprazole Sodium (Protonix Inj) 40 mg IVP DAILY [facility] Last Admin: 08/06/18 09:15 Dose: 40 mg - Labs Labs: 08/06/18 05:40 08/06/18 05:40 PT 11.9 Seconds (9.8-13.1) 08/01/18 18:30 INR 1.1 08/01/18 18:30 APTT 29.7 Seconds (25.6-37.1) 08/01/18 18:30 - Constitutional Appears: No Acute Distress - Head Exam Head Exam: NORMAL INSPECTION - Eye Exam Eye Exam: PERRL - ENT Exam ENT Exam: Normal Exam - Neck Exam Neck Exam: Normal Inspection - Respiratory Exam Respiratory Exam: NORMAL BREATHING PATTERN - Cardiovascular Exam Cardiovascular Exam: REGULAR RHYTHM - GI/Abdominal Exam GI & Abdominal Exam: Tenderness (RLQ > RUQ). absent: Guarding, Rebound ( ) - Extremities Exam Extremities Exam: Normal Inspection - Back Exam Back Exam: NORMAL INSPECTION - Neurological Exam Neurological Exam: Alert, Oriented x3 - Psychiatric Exam Psychiatric exam: Normal Mood - Skin Skin Exam: Warm Assessment and Plan (1) Mass of colon Status: Deleted (2) Abdominal pain Status: Acute - Assessment and Plan (Free Text) Plan: Pathology for Colon Mass: Adenocarcinoma. Planing for surgical resection tomorrow 08/07/18. F/U Hematology, GI and decorator consultant.
--- NOTE | 2018-08-06 11:30 | CP.PCM.PN ---
Subjective - Date & Time of Evaluation Date of Evaluation: 08/06/18 Time of Evaluation: 11:29 - Subjective Subjective: GI progress note for Dr. Brianne Jones, PGY-2 Pt S & E at bedside at 1120 Pt reports occasional intermittent abdominal pain that lasts 3-5 secs. Currently tolerating liquid diet. Denies N & V, F & C. Had BM yesterday. Plans for surgical resection either tomorrow or Thurs as per pt. Objective - Vital Signs/Intake and Output Vital Signs (last 24 hours): Temp Pulse Resp BP Pulse Ox 97.8 F 78 18 115/62 98 08/06/18 08:23 08/06/18 08:23 08/06/18 08:23 08/06/18 08:23 08/06/18 08:23 - Medications Medications: Current Medications Epoetin Manolo (Procrit) 10,000 unit SC MWF [facility] Last Admin: 08/05/18 18:29 Dose: 10,000 unit Iron Sucrose 100 mg/ Sodium (Chloride) 105 mls @ 105 mls/hr IVPB DAILY [facility] Last Admin: 08/06/18 09:20 Dose: 105 mls/hr Lactated Ringer's (Lactated Ringer's) 1,000 mls @ 125 mls/hr IV .Q8H [facility] Morphine Sulfate (Morphine) 4 mg IVP Q4 PRN PRN Reason: Pain, severe (8-10) Last Admin: 08/06/18 00:11 Dose: 4 mg Ondansetron HCl (Zofran Inj) 4 mg IVP Q6 PRN PRN Reason: Nausea/Vomiting Last Admin: 08/02/18 17:38 Dose: 4 mg Pantoprazole Sodium (Protonix Inj) 40 mg IVP DAILY [facility] Last Admin: 08/06/18 09:15 Dose: 40 mg - Labs Labs: 08/06/18 05:40 08/06/18 05:40 PT 11.9 Seconds (9.8-13.1) 08/01/18 18:30 INR 1.1 08/01/18 18:30 APTT 29.7 Seconds (25.6-37.1) 08/01/18 18:30 - Constitutional Appears: Non-toxic, No Acute Distress - Head Exam Head Exam: ATRAUMATIC, NORMAL INSPECTION, NORMOCEPHALIC - Eye Exam Eye Exam: EOMI, Normal appearance - ENT Exam ENT Exam: Mucous Membranes Moist, Normal Exam - Neck Exam Neck Exam: Full ROM, Normal Inspection - Respiratory Exam Respiratory Exam: Clear to Ausculation Bilateral, NORMAL BREATHING PATTERN - Cardiovascular Exam Cardiovascular Exam: REGULAR RHYTHM, +S1, +S2 - GI/Abdominal Exam GI & Abdominal Exam: Soft. 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
[2018-08-06] MEDS ORDERED: Magnesium Citrate Oral SOL (300 ml) PO ONE (16:00)
[2018-08-06 19:40] LABS: INR 1.2; PROTHROMBIN TIME 13.2 Seconds (9.8-13.1)
[2018-08-06 19:43] LABS: PARTIAL THROMBOPLASTIN TIME 32.9 Seconds (25.6-37.1)
[2018-08-07] MEDS: Lactated Ringer's 1,000 ML IV SCH ×3 (00:03→23:34)
[2018-08-07 06:26] LABS: BASO % 0.8 % (0.0-2.0); EOS # 0.4 K/uL (0.0-0.7); EOS % 6.2 % (0.0-4.0); HEMOGLOBIN 9.5 g/dL (12.0-18.0); LYMPH # 1.3 K/uL (1.0-4.3); LYMPH % 22.2 % (20.0-40.0); MEAN CELL VOLUME 67.2 fl (80.0-94.0); MEAN CORPUSCULAR HGB CONC 31.3 g/dL (33.0-37.0); MEAN PLATELET VOLUME 7.6 fl (7.2-11.7); MONO # 0.6 K/uL (0.0-0.8); MONO % 10.7 % (0.0-10.0); NEUT # 3.5 K/uL (1.8-7.0); NEUT % 60.1 % (50.0-75.0); RBC 4.53 Mil/uL (4.40-5.90); RED CELL DISTRIBUTION WIDTH 17.4 % (11.5-14.5); WHITE BLOOD COUNT 5.9 K/uL (4.8-10.8)
[2018-08-07 06:29] LABS: INR 1.2; PROTHROMBIN TIME 13.3 Seconds (9.8-13.1)
[2018-08-07 06:32] LABS: PARTIAL THROMBOPLASTIN TIME 32.9 Seconds (25.6-37.1)
[2018-08-07 07:32] LABS: ALB/GLOB RATIO 1.2 (1.0-2.1); ALBUMIN 4.2 g/dL (3.5-5.0); ALT/SGPT 40 U/L (21-72); AST/SGOT 41 U/L (17-59); BLOOD UREA NITROGEN 12 mg/dl (9-20); CALCIUM 9.2 mg/dL (8.4-10.2); GFR NON-AFRICAN AMERICAN > 60
[2018-08-07] MEDS ORDERED: Bupivacaine HCl 0.5% PF (30 ml) Inj ONE (09:09)
[2018-08-07] MEDS ORDERED: Propofol 10 mg/ml Inj (20 ML) ONE (09:23)
[2018-08-07] MEDS ORDERED: Rocuronium 10 mg/ml (5 ml) ONE ×2 (09:23→11:28)
[2018-08-07] MEDS ORDERED: Midazolam 2 MG/2 ML VIAL ONE (09:23)
[2018-08-07] MEDS ORDERED: Succinylcholine 200 mg/10 ml Inj IV ONE (09:23)
[2018-08-07] MEDS ORDERED: metroNIDAZOLE 500mg/100ml NS 100 ML IVPB ONE (09:24)
[2018-08-07] MEDS ORDERED: ceFAZolin IV 1 gm in Dextrose 1 GM/50 ML BAG IVPB ONE (09:25)
[2018-08-07] MEDS ORDERED: Lactated Ringer's 1,000 ML IV ONE ×2 (09:32→10:00)
[2018-08-07] MEDS ORDERED: Desflurane Inhalation Anesthetic Liq (240 ml) ONE (09:36)
[2018-08-07] MEDS ORDERED: metroNIDAZOLE 500mg/100ml NS IVPB ONE ×2 (09:37→09:47)
[2018-08-07] MEDS ORDERED: Morphine 1 mg/ml preservative-free Inj(Duramorph) ONE (10:02)
[2018-08-07] MEDS ORDERED: Lactated Ringer's 500 ML IV ONE (10:30)
[2018-08-07] MEDS ORDERED: Sodium Chloride 0.9% 1,000 ML IV ONE (11:00)
[2018-08-07] MEDS ORDERED: Neostigmine 1:1000 (1 mg/ml) Inj ONE (11:31)
[2018-08-07] MEDS ORDERED: Naloxone 0.4 mg/ml Inj (Adult) IVP PRN (12:10)
[2018-08-07] MEDS ORDERED: Sodium Chloride 0.9% 1,000 ML IV PRN (12:10)
--- NOTE | 2018-08-07 12:16 | PCM.SURG1 ---
Surgeon's Initial Post Op Note - Surgeon's Notes Surgeon: La Nena Sand Technologist: Zach Type of Anesthesia: General Endo Anesthesia Administered By: Joyce Pre-Operative Diagnosis: Colon cancer Operative Findings: Hepatic flexure mass Post-Operative Diagnosis: same Operation Performed: Laparoscopic Hand-Assisted Right hemicolectomy, partial omentectomy Specimen/Specimens Removed: Right colon, omentum Estimated Blood Loss: EBL {In ML}: 100 Blood Products Given: N/A Drains Used: No Drains Post-Op Condition: Good Date of Surgery/Procedure: 08/07/18 Time of Surgery/Procedure: 09:25
[2018-08-07] MEDS: HYDROmorphone 0.5 mg/0.5 ml ISec IVP PRN ×3 (12:35→13:05)
[2018-08-07] MEDS ORDERED: Lactated Ringer's 500 ML IV SCH ×2 (16:45→17:45)
[2018-08-07] MEDS: EPOETIN ALFA 10,000 UNIT/ML ML SC SCH (21:38)
[2018-08-07] MEDS ORDERED: HYDROmorphone 1 mg/ml ISec IVP PRN (23:16)
--- NOTE | 2018-08-08 00:07 | OP ---
PROCEDURE DATE: 08/07/2018 PREOPERATIVE DIAGNOSIS: Colon cancer. POSTOPERATIVE DIAGNOSIS: Colon cancer. PROCEDURES: Laparoscopic hand-assisted right hemicolectomy, partial omentectomy. SURGEON: Camilo Deutsch MD ELECTRO MECHANICAL SOLAR TECHNICIAN: Zach. ANESTHESIOLOGIST: Zoë Reed MD ANESTHESIA: General endotracheal intubation. INTRAVENOUS FLUIDS: Crystalloids. ESTIMATED BLOOD LOSS: 100 mL. INTRAOPERATIVE FINDINGS: Right colon mass, hepatic flexure. SPECIMENS: Right colon and omentum. BRIEF HISTORY: Mr. Nikhil Sosa is a very pleasant 42-year-old gentleman who presented to the hospital complaining of abdominal pain and upon further investigation on a CAT scan, the patient was found to have obstructing lesion at the hepatic flexure on the CAT scan. Subsequent to that, the patient underwent colonoscopy with Dr. Inman with findings of partially obstructing tumor in the right colon. Biopsy came back as moderately differentiated adenocarcinoma. All the risks and benefits of the procedure were explained to the patient. With the patient having full understanding of all the risks and benefits involved, informed consent was obtained, and the patient was taken to the operating room for the above stated procedure. DESCRIPTION OF PROCEDURE: The patient was brought into the operating room and placed supine on the operating table. Bilateral Flowtron boots were applied to the patient's lower extremities. After successful induction of anesthesia and successful endotracheal intubation by the anesthesia team, a Christine catheter was inserted into the patient's urinary bladder. Subsequent to that, the patient's abdomen was prepped with ChloraPrep stick and draped in a standard surgical fashion. Prior to the beginning of the procedure, the patient received prophylactic Ancef and Flagyl antibiotics. Subsequent to that, a time-out was called into room and everyone in the room were in agreement. Using a 10-blade scalpel knife, approximately 5-cm incision was made supraumbilically in a longitudinal fashion. Subsequent to that, dissection was carried down with electrocautery until the fascial layer was visualized. A small alejandro was made in the fascia. Subsequent to that, two Delmis clamps were placed on both ends of the fascia. At this point in time, the fascia was opened up a little bit more. Subsequent to that, the peritoneal layer was encountered. The peritoneum was clamped with two Delmis clamps and transected with Metzenbaum scissors. At this point in time, the patient's abdominal cavity was entered. Once this was accomplished, the fascial layer was opened up for the entire incision. Subsequent to that, two stay sutures of 0 Vicryl were placed in both ends of the fascia. Subsequent to that, the hand port was introduced into the patient's abdomen. At this point in time, the pneumoperitoneum was achieved. Subsequent to that, using 5-mm 0-degree scope, it was introduced into the patient's abdomen. The abdomen was inspected. All the peritoneal surfaces, right upper quadrant, left upper quadrant, pelvis, right lower and left lower quadrants were examined as well as the liver. There appeared to be no evidence of metastatic disease anywhere. Upon further investigation, I was able to visualize the tattoo prior placed by the corporate coordinator in the hepatic flexure. At this point in time, attention was turned to the subxiphoid area. Using an 11-blade scalpel, a 5-mm incision was made in the transverse fascia. Subsequent to that, a 5-mm trocar was introduced into the patient's abdomen. Once this was accomplished, attention was turned to the right upper quadrant of the patient's abdomen. Using #11 blade scalpel knife, another 5-mm incision was made in a transverse fashion. Subsequent to that, another 5-mm trocar was introduced into the patient's abdomen. At this point in time, using harmonic scalpel, the right colon was mobilized along the white line of Toldt. Subsequent to that, the hepatic flexure was mobilized. At this point in time, procedure was converted to open. The colon was brought out and exteriorized for the wound. Subsequent to that, a small alejandro was made in the mesentery of the terminal ileum. Subsequent to that, Delmis clamp was placed over the prior made defect. At this point in time, a 75-mm blue load BARRY stapler was fired across the terminal ileum. Then, attention was turned to the transverse colon. Distance measured approximately more than 5 cm from the tumor distally. The transverse colon was measured out, and a small alejandro was made in the mesentery of the transverse colon. Subsequent to that, another 75-mm blue load BARRY stapler was fired across the transverse colon distal to the tumor. At this point in time, the mesentery of the colon was taken with harmonic scalpel. Once the specimen was completely freed up, it was passed off to the Green stand. At this point in time, hemostasis was confirmed. Subsequent to that, transverse colon and terminal ileum were approximated with 3-0 silk suture in a [id number]-au-[id number] fashion. At this point in time, two enterotomies were made; one in transverse colon and one in terminal ileum. Two Allis clamps were introduced into the lumen of the bowel. At this point in time, a 75-mm blue load BARRY stapler was introduced into the lumens of the bowel, and the stapler was fired. Once this was accomplished, the staple line was inspected for hemostasis. Hemostasis appeared to be satisfactory. Once this was accomplished, the defect of the bowel was closed with TA 60 stapler blue load, and redundant portion was transected with curved Green. At this point in time, the staple line was reinforced with a running 3-0 chromic suture. At this point in time, there appeared to be significant portion of redundant omentum that was transected off with harmonic scalpel. Once this was accomplished, anastomosis was reduced back into the abdominal cavity. The procedure was converted back to laparoscopic. The right side of the abdomen was inspected for hemostasis. The entire abdomen was inspected for hemostasis. Hemostasis appeared to be satisfactory. So at this point in time, the hand port was taken out from the patient. The laparoscopic trocars were taken out from the patient. The fascial layer was closed with #1 looped PDS, one from above and one from below and tied in the middle. Prior placed Vicryl sutures were tied as well. At this point in time, the wound was irrigated and dried. Skin was approximated with shayne. At this point in time, the patient's abdomen was washed and dried, and a clean dressing was applied to the site of the incisions. The patient was successfully extubated by the anesthesia team, transferred to the stretcher and taken to the recovery room in a stable condition. At the end of the procedure, all instrument counts, needles and sponges were correct. Camilo Deutsch MD
[2018-08-08 06:00] LABS: BASO % 0.4 % (0.0-2.0); EOS # 0.1 K/uL (0.0-0.7); HEMOGLOBIN 8.8 g/dL (12.0-18.0); LYMPH # 0.7 K/uL (1.0-4.3); LYMPH % 10.3 % (20.0-40.0); MEAN CORPUSCULAR HEMOGLOBIN 20.9 pg (27.0-31.0); MEAN CORPUSCULAR HGB CONC 30.8 g/dL (33.0-37.0); MEAN PLATELET VOLUME 7.6 fl (7.2-11.7); MONO # 0.6 K/uL (0.0-0.8); MONO % 9.2 % (0.0-10.0); NEUT # 5.3 K/uL (1.8-7.0); NEUT % 79.1 % (50.0-75.0); RBC 4.21 Mil/uL (4.40-5.90); RED CELL DISTRIBUTION WIDTH 17.5 % (11.5-14.5); WHITE BLOOD COUNT 6.7 K/uL (4.8-10.8)
[2018-08-08 06:20] LABS: BLOOD UREA NITROGEN 8 mg/dl (9-20); CALCIUM 8.2 mg/dL (8.4-10.2); GFR NON-AFRICAN AMERICAN > 60
--- NOTE | 2018-08-08 09:16 | CP.PCM.PN ---
<Sadaf Villagomez - Last Filed: 08/08/18 09:14> Subjective - Date & Time of Evaluation Date of Evaluation: 08/08/18 Time of Evaluation: 07:00 - Subjective Subjective: GENERAL SURGERY PROGRESS NOTE FOR DR. PAREKH Patient seen and examined at bedside. He states that he has abdominal pain which is only partially relieved by the Dilaudid. He was increased to dilaudid 1 Q3. He has not been OOB yet. Remains NPO. Garcia had 1300cc overnight. Objective - Vital Signs/Intake and Output Vital Signs (last 24 hours): Temp Pulse Resp BP Pulse Ox 99.1 F 69 20 109/71 97 08/08/18 08:10 08/08/18 08:10 08/08/18 08:10 08/08/18 08:10 08/08/18 08:10 - Medications Medications: Current Medications Enoxaparin Sodium (Lovenox) 40 mg SC DAILY [facility]; Protocol Epoetin Manolo (Procrit) 10,000 unit SC MWF [facility] Last Admin: 08/07/18 21:38 Dose: 10,000 unit Hydromorphone HCl (Dilaudid) 1 mg IVP Q3 PRN PRN Reason: Pain, severe (8-10) Last Admin: 08/08/18 06:57 Dose: 1 mg Iron Sucrose 100 mg/ Sodium (Chloride) 105 mls @ 105 mls/hr IVPB DAILY [facility] Last Admin: 08/07/18 09:00 Dose: 105 mls/hr Sodium Chloride (Sodium Chloride 0.9%) 1,000 mls @ 1,000 mls/hr IV .Q1H PRN PRN Reason: Hypotension Lactated Ringer's (Lactated Ringer's) 1,000 mls @ 150 mls/hr IV .Q6H40M [facility] Last Admin: 08/07/18 23:34 Dose: 150 mls/hr Naloxone HCl (Narcan) 0.1 mg IVP Q2M PRN PRN Reason: Shortness of Breath Ondansetron HCl (Zofran Inj) 4 mg IVP Q6 PRN PRN Reason: Nausea/Vomiting Last Admin: 08/02/18 17:38 Dose: 4 mg Pantoprazole Sodium (Protonix Inj) 40 mg IVP DAILY [facility] Last Admin: 08/07/18 08:45 Dose: 40 mg - Labs Labs: 08/08/18 05:35 08/08/18 05:35 PT 13.3 Seconds (9.8-13.1) H 08/07/18 05:25 INR 1.2 08/07/18 05:25 APTT 32.9 Seconds (25.6-37.1) 08/07/18 05:25 - Constitutional Appears: Well, Non-toxic, No Acute Distress - Head Exam Head Exam: ATRAUMATIC, NORMAL INSPECTION - Respiratory Exam Respiratory Exam: NORMAL BREATHING PATTERN. absent: Respiratory Distress - Cardiovascular Exam Cardiovascular Exam: +S1, +S2 - GI/Abdominal Exam GI & Abdominal Exam: Soft, Tenderness. absent: Distended, Firm, Guarding, Rebound Additional comments: Dressings clean/dry/intact - Neurological Exam Neurological Exam: Alert, Awake, Oriented x3 - Psychiatric Exam Psychiatric exam: Normal Affect, Normal Mood - Skin Skin Exam: Dry, Normal Color, Warm Assessment and Plan - Assessment and Plan (Free Text) Assessment: 42yo M with adenocarcinoma s/p Laparoscopic Hand-Assisted Right hemicolectomy, partial omentectomy POD#1 - Good urine output post op, DC garcia - Encouraged ambulation and OOB, PT ordered - Encouraged IS use - Discussed plan with Dr. La Nena Villagomez PGY-4 <Camilo Parekh - Last Filed: 08/08/18 12:23> Subjective - Date & Time of Evaluation Time of Evaluation: 12:00 - Subjective Subjective: Patient was seen and examined at the bedside. Agree with resident's note above. Objective - Vital Signs/Intake and Output Vital Signs (last 24 hours): Temp Pulse Resp BP Pulse Ox 99.1 F 78 20 109/71 98 08/08/18 08:10 08/08/18 11:21 08/08/18 08:10 08/08/18 08:10 08/08/18 11:21 - Medications Medications: Current Medications Enoxaparin Sodium (Lovenox) 40 mg SC DAILY [facility]; Protocol Last Admin: 08/08/18 11:35 Dose: Not Given Epoetin Manolo (Procrit) 10,000 unit SC MWF [facility] Last Admin: 08/07/18 21:38 Dose: 10,000 unit Hydromorphone HCl (Dilaudid) 1 mg IVP Q3 PRN PRN Reason: Pain, severe (8-10) Last Admin: 08/08/18 09:43 Dose: 1 mg Hydromorphone HCl (Dilaudid 0.2 Mg/Ml [employer] Buffing Wheel) 6 mg IV PRN PRN; Protocol PRN Reason: Pain, moderate (4-7) Last Admin: 08/08/18 11:38 Dose: 6 mg Iron Sucrose 100 mg/ Sodium (Chloride) 105 mls @ 105 mls/hr IVPB DAILY [facility] Last Admin: 08/08/18 09:18 Dose: 105 mls/hr Sodium Chloride (Sodium Chloride 0.9%) 1,000 mls @ 1,000 mls/hr IV .Q1H PRN PRN Reason: Hypotension Lactated Ringer's (Lactated Ringer's) 1,000 mls @ 150 mls/hr IV .Q6H40M [facility] Last Admin: 08/08/18 09:22 Dose: 150 mls/hr Naloxone HCl (Narcan) 0.1 mg IVP Q2M PRN PRN Reason: Shortness of Breath Ondansetron HCl (Zofran Inj) 4 mg IVP Q6 PRN PRN Reason: Nausea/Vomiting Last Admin: 08/02/18 17:38 Dose: 4 mg Pantoprazole Sodium (Protonix Inj) 40 mg IVP DAILY [facility] Last Admin: 08/08/18 09:19 Dose: 40 mg - Labs Labs: 08/08/18 05:35 08/08/18 05:35 PT 13.3 Seconds (9.8-13.1) H 08/07/18 05:25 INR 1.2 08/07/18 05:25 APTT 32.9 Seconds (25.6-37.1) 08/07/18 05:25 - GI/Abdominal Exam Additional comments: soft, anthony-incisional tenderness, ND, BS hypoactive, no rebound, no guarding, dressing dry, clean, intact Assessment and Plan - Assessment and Plan (Free Text) Plan: - Start clear liquid diet - Pain control - Insentive spirometry - d/c garcia - DVT ppx - Out of bed - Repeat labs in am - Will follow
[2018-08-08] MEDS: Lactated Ringer's 1,000 ML IV SCH ×3 (09:22→18:19)
--- NOTE | 2018-08-08 10:05 | CP.PCM.PCO ---
Physician Communication Note - Physician Communication Note Physician Communication Note: patient evaluated and discussed with Dr. Lopez. He agrees to renew Jenniffer Gallegos
--- NOTE | 2018-08-08 10:10 | CP.PCM.PCO ---
Assessment/Plan - Assessment and Plan (Free Text) Assessment: S/P lap. hand assisted marcos colectomy and partial omentectomy. Discussed with Dr. Lopez after evaluating the patient.He agrees with the ff: - Renew [employer] dilaudid for another 24H - Continue Dilaudid 1mg IVP Q3H prn for breakthrough pain. - Date & Time Date: 08/08/18 Time: 09:45
--- NOTE | 2018-08-08 10:26 | CP.PCM.PN ---
Subjective - Date & Time of Evaluation Date of Evaluation: 08/08/18 Time of Evaluation: 10:25 - Subjective Subjective: Pt is in a fair amount of discomfort after the surgery. He had a right hemicolectomy and the mass at the hepatic flexure was resected. Final pathology awaited. Objective - Vital Signs/Intake and Output Vital Signs (last 24 hours): Temp Pulse Resp BP Pulse Ox 99.1 F 69 20 109/71 97 08/08/18 08:10 08/08/18 08:10 08/08/18 08:10 08/08/18 08:10 08/08/18 08:10 - Medications Medications: Current Medications Enoxaparin Sodium (Lovenox) 40 mg SC DAILY [facility]; Protocol Epoetin Manolo (Procrit) 10,000 unit SC [facility] Last Admin: 08/07/18 21:38 Dose: 10,000 unit Hydromorphone HCl (Dilaudid) 1 mg IVP Q3 PRN PRN Reason: Pain, severe (8-10) Last Admin: 08/08/18 09:43 Dose: 1 mg Hydromorphone HCl (Dilaudid 0.2 Mg/Ml [employer]) 6 mg IV PRN PRN; Protocol PRN Reason: Pain, moderate (4-7) Iron Sucrose 100 mg/ Sodium (Chloride) 105 mls @ 105 mls/hr IVPB DAILY [facility] Last Admin: 08/08/18 09:18 Dose: 105 mls/hr Sodium Chloride (Sodium Chloride 0.9%) 1,000 mls @ 1,000 mls/hr IV .Q1H PRN PRN Reason: Hypotension Lactated Ringer's (Lactated Ringer's) 1,000 mls @ 150 mls/hr IV .Q6H40M [facility] Last Admin: 08/08/18 09:22 Dose: 150 mls/hr Naloxone HCl (Narcan) 0.1 mg IVP Q2M PRN PRN Reason: Shortness of Breath Ondansetron HCl (Zofran Inj) 4 mg IVP Q6 PRN PRN Reason: Nausea/Vomiting Last Admin: 08/02/18 17:38 Dose: 4 mg Pantoprazole Sodium (Protonix Inj) 40 mg IVP DAILY [facility] Last Admin: 08/08/18 09:19 Dose: 40 mg - Labs Labs: 08/08/18 05:35 08/08/18 05:35 PT 13.3 Seconds (9.8-13.1) H 08/07/18 05:25 INR 1.2 08/07/18 05:25 APTT 32.9 Seconds (25.6-37.1) 08/07/18 05:25
[2018-08-08] MEDS: Enoxaparin 40 mg Syringe SC SCH (11:35)
--- NOTE | 2018-08-08 16:37 | CP.PCM.PN ---
Subjective - Date & Time of Evaluation Date of Evaluation: 08/08/18 Time of Evaluation: 11:30 - Subjective Subjective: F/U Colon Adenocarcinoma. S/P Laparoscopic with R Hemicolectomy for Colon Ca yesterday. Pt c/o of abdominal pain, more prominent to RUQ, RLQ. Objective - Vital Signs/Intake and Output Vital Signs (last 24 hours): Temp Pulse Resp BP Pulse Ox 98 F 64 18 117/71 100 08/08/18 16:09 08/08/18 16:09 08/08/18 16:09 08/08/18 16:09 08/08/18 16:09 - Medications Medications: Current Medications Enoxaparin Sodium (Lovenox) 40 mg SC DAILY [facility]; Protocol Last Admin: 08/08/18 11:35 Dose: Not Given Epoetin Manolo (Procrit) 10,000 unit SC MWF [facility] Last Admin: 08/07/18 21:38 Dose: 10,000 unit Hydromorphone HCl (Dilaudid) 1 mg IVP Q3 PRN PRN Reason: Pain, severe (8-10) Last Admin: 08/08/18 12:52 Dose: 1 mg Hydromorphone HCl (Dilaudid 0.2 Mg/Ml Mobility Manager) 6 mg IV PRN PRN; Protocol PRN Reason: Pain, moderate (4-7) Last Admin: 08/08/18 11:38 Dose: 6 mg Iron Sucrose 100 mg/ Sodium (Chloride) 105 mls @ 105 mls/hr IVPB [facility]ILY [facility] Last Admin: 08/08/18 09:18 Dose: 105 mls/hr Sodium Chloride (Sodium Chloride 0.9%) 1,000 mls @ 1,000 mls/hr IV .Q1H PRN PRN Reason: Hypotension Lactated Ringer's (Lactated Ringer's) 1,000 mls @ 150 mls/hr IV .Q6H40M [facility] Last Admin: 08/08/18 16:30 Dose: Not Given Naloxone HCl (Narcan) 0.1 mg IVP Q2M PRN PRN Reason: Shortness of Breath Ondansetron HCl (Zofran Inj) 4 mg IVP Q6 PRN PRN Reason: Nausea/Vomiting Last Admin: 08/02/18 17:38 Dose: 4 mg Pantoprazole Sodium (Protonix Inj) 40 mg IVP DAILY [facility] Last Admin: 08/08/18 09:19 Dose: 40 mg - Labs Labs: 08/08/18 05:35 08/08/18 05:35 PT 13.3 Seconds (9.8-13.1) H 08/07/18 05:25 INR 1.2 08/07/18 05:25 APTT 32.9 Seconds (25.6-37.1) 08/07/18 05:25 - Constitutional Appears: No Acute Distress - Head Exam Head Exam: NORMAL INSPECTION - Eye Exam Eye Exam: PERRL - ENT Exam ENT Exam: Normal Exam - Neck Exam Neck Exam: Normal Inspection - Respiratory Exam Respiratory Exam: NORMAL BREATHING PATTERN - Cardiovascular Exam Cardiovascular Exam: REGULAR RHYTHM - GI/Abdominal Exam GI & Abdominal Exam: Soft, Tenderness (around midline incision with shayne in place.) - Extremities Exam Extremities Exam: Normal Inspection - Back Exam Back Exam: NORMAL INSPECTION - Neurological Exam Neurological Exam: Alert, Oriented x3 - Psychiatric Exam Psychiatric exam: Normal Mood - Skin Skin Exam: Warm Assessment and Plan (1) Colon adenocarcinoma Status: Acute (2) Status post right hemicolectomy Status: Acute (3) Abdominal pain Status: Acute - Assessment and Plan (Free Text) Plan: Continue Clear fluid, Dilaudid and rest of tx. f/u enterprise resource planning consultant.
[2018-08-09] MEDS: Lactated Ringer's 1,000 ML IV SCH ×3 (00:53→18:49)
[2018-08-09 06:34] LABS: BASO % 0.2 % (0.0-2.0); EOS # 0.2 K/uL (0.0-0.7); EOS % 2.2 % (0.0-4.0); HEMOGLOBIN 7.9 g/dL (12.0-18.0); LYMPH # 0.7 K/uL (1.0-4.3); LYMPH % 7.4 % (20.0-40.0); MEAN CELL VOLUME 68.8 fl (80.0-94.0); MEAN CORPUSCULAR HEMOGLOBIN 21.2 pg (27.0-31.0); MEAN CORPUSCULAR HGB CONC 30.8 g/dL (33.0-37.0); MEAN PLATELET VOLUME 7.7 fl (7.2-11.7); MONO # 0.8 K/uL (0.0-0.8); MONO % 8.4 % (0.0-10.0); NEUT % 81.8 % (50.0-75.0); PLATELET COUNT 293 K/uL (130-400); RBC 3.73 Mil/uL (4.40-5.90); RED CELL DISTRIBUTION WIDTH 17.4 % (11.5-14.5); WHITE BLOOD COUNT 9.8 K/uL (4.8-10.8)
[2018-08-09 06:53] LABS: BLOOD UREA NITROGEN 6 mg/dl (9-20); CALCIUM 8.4 mg/dL (8.4-10.2); GFR NON-AFRICAN AMERICAN > 60
--- NOTE | 2018-08-09 09:24 | CP.PCM.PN ---
<Anu Back - Last Filed: 08/09/18 09:22> Subjective - Date & Time of Evaluation Date of Evaluation: 08/09/18 Time of Evaluation: 07:30 - Subjective Subjective: Surgery: Dr. Deutsch Pt seen and examined. No acute overnight events. Pt states he feels ok but continues to have post-op pain around the incision. Admits to nausea yesterday after having the clear liquids but denies vomiting. Denies flatus, BM, fevers/chills. Objective - Vital Signs/Intake and Output Vital Signs (last 24 hours): Temp Pulse Resp BP Pulse Ox 98.9 F 66 20 124/65 99 08/09/18 08:04 08/09/18 08:04 08/09/18 08:04 08/09/18 08:04 08/09/18 08:04 - Medications Medications: Current Medications Enoxaparin Sodium (Lovenox) 40 mg SC DAILY [facility]; Protocol Last Admin: 08/08/18 11:35 Dose: Not Given Epoetin Manolo (Procrit) 10,000 unit SC MWF [facility] Last Admin: 08/07/18 21:38 Dose: 10,000 unit Hydromorphone HCl (Dilaudid) 1 mg IVP Q3 PRN PRN Reason: Pain, severe (8-10) Last Admin: 08/09/18 05:15 Dose: 1 mg Hydromorphone HCl (Dilaudid 0.2 Mg/Ml Economic History Teacher) 6 mg IV PRN PRN; Protocol PRN Reason: Pain, moderate (4-7) Last Admin: 08/08/18 21:20 Dose: 6 mg Iron Sucrose 100 mg/ Sodium (Chloride) 105 mls @ 105 mls/hr IVPB DAILY [facility] Last Admin: 08/08/18 09:18 Dose: 105 mls/hr Sodium Chloride (Sodium Chloride 0.9%) 1,000 mls @ 1,000 mls/hr IV .Q1H PRN PRN Reason: Hypotension Lactated Ringer's (Lactated Ringer's) 1,000 mls @ 150 mls/hr IV .Q6H40M [facility] Last Admin: 08/09/18 00:53 Dose: 150 mls/hr Naloxone HCl (Narcan) 0.1 mg IVP Q2M PRN PRN Reason: Shortness of Breath Ondansetron HCl (Zofran Inj) 4 mg IVP Q6 PRN PRN Reason: Nausea/Vomiting Last Admin: 08/08/18 18:29 Dose: 4 mg Pantoprazole Sodium (Protonix Inj) 40 mg IVP DAILY [facility] Last Admin: 08/08/18 09:19 Dose: 40 mg - Labs Labs: 08/09/18 05:45 08/09/18 05:45 PT 13.3 Seconds (9.8-13.1) H 08/07/18 05:25 INR 1.2 08/07/18 05:25 APTT 32.9 Seconds (25.6-37.1) 08/07/18 05:25 - Constitutional Appears: Well, No Acute Distress - Head Exam Head Exam: ATRAUMATIC, NORMOCEPHALIC - Eye Exam Eye Exam: Normal appearance - ENT Exam ENT Exam: Mucous Membranes Moist - Respiratory Exam Respiratory Exam: NORMAL BREATHING PATTERN - Cardiovascular Exam Cardiovascular Exam: RRR - GI/Abdominal Exam GI & Abdominal Exam: Soft, Tenderness (around midline incision, clean/dry/intact with shayne in place ). absent: Distended, Rebound - Neurological Exam Neurological Exam: Alert, Awake, Oriented x3 - Skin Skin Exam: Dry, Warm Assessment and Plan - Assessment and Plan (Free Text) Assessment: 42M s/p lap hand assisted R hemicolectomy for colon andenocarcinoma: POD#2 Plan: - cont liquid diet; will advance slowly once starts to have bowel function - wean IV pain medication as tolerated - encourage ambulation & IS - f/u pathology - DVT PPX - d/w Dr. La Nena Back <Camilo Deutsch - Last Filed: 08/09/18 09:54> Subjective - Date & Time of Evaluation Time of Evaluation: 09:25 - Subjective Subjective: Patient was seen and examined at the bedside. Agree with resident's note above. Objective - Vital Signs/Intake and Output Vital Signs (last 24 hours): Temp Pulse Resp BP Pulse Ox 98.9 F 66 20 124/65 99 08/09/18 08:04 08/09/18 08:04 08/09/18 08:04 08/09/18 08:04 08/09/18 08:04 - Medications Medications: Current Medications Enoxaparin Sodium (Lovenox) 40 mg SC DAILY [facility]; Protocol Last Admin: 08/08/18 11:35 Dose: Not Given Epoetin Manolo (Procrit) 10,000 unit SC MWF [facility] Last Admin: 08/07/18 21:38 Dose: 10,000 unit Hydromorphone HCl (Dilaudid) 1 mg IVP Q3 PRN PRN Reason: Pain, severe (8-10) Last Admin: 08/09/18 05:15 Dose: 1 mg Hydromorphone HCl (Dilaudid 0.2 Mg/Ml Economic History Teacher) 6 mg IV PRN PRN; Protocol PRN Reason: Pain, moderate (4-7) Last Admin: 08/08/18 21:20 Dose: 6 mg Iron Sucrose 100 mg/ Sodium (Chloride) 105 mls @ 105 mls/hr IVPB [facility]ILY [facility] Last Admin: 08/08/18 09:18 Dose: 105 mls/hr Sodium Chloride (Sodium Chloride 0.9%) 1,000 mls @ 1,000 mls/hr IV .Q1H PRN PRN Reason: Hypotension Lactated Ringer's (Lactated Ringer's) 1,000 mls @ 150 mls/hr IV .Q6H40M [facility] Last Admin: 08/09/18 00:53 Dose: 150 mls/hr Naloxone HCl (Narcan) 0.1 mg IVP Q2M PRN PRN Reason: Shortness of Breath Ondansetron HCl (Zofran Inj) 4 mg IVP Q6 PRN PRN Reason: Nausea/Vomiting Last Admin: 08/08/18 18:29 Dose: 4 mg Pantoprazole Sodium (Protonix Inj) 40 mg IVP DAILY [facility] Last Admin: 08/08/18 09:19 Dose: 40 mg - Labs Labs: 08/09/18 05:45 08/09/18 05:45 PT 13.3 Seconds (9.8-13.1) H 08/07/18 05:25 INR 1.2 08/07/18 05:25 APTT 32.9 Seconds (25.6-37.1) 08/07/18 05:25 - GI/Abdominal Exam Additional comments: soft, anthony-incisional tenderness, ND, BS hypoactive, no rebound, no guarding, incisions clean, no erythema, no drainage, shayne in place Assessment and Plan - Assessment and Plan (Free Text) Plan: - Repeat labs in am - Will follow
[2018-08-09 09:26] LABS: EOSINOPHIL 3 % (0-7); HYPOCHROMIC MODERATE; LYMPHOCYTE 8 % (20-50); MICROCYTOSIS SLIGHT; MONOCYTE 3 % (0-10); NEUTROPHIL 86 % (42-75); PLATELET ESTIMATE NORMAL (NORMAL); POIKILOCYTOSIS SLIGHT; TOTAL CELLS COUNTED 100
[2018-08-09 09:27] LABS: ANISOCYTOSIS MODERATE; LARGE PLATELETS PRESENT; OVALOCYTES MODERATE; TEARDROP CELLS SLIGHT
[2018-08-09] MEDS: EPOETIN ALFA 10,000 UNIT/ML ML SC SCH (10:03)
--- NOTE | 2018-08-09 12:39 | CP.PCM.PN ---
Subjective - Date & Time of Evaluation Date of Evaluation: 08/09/18 Time of Evaluation: 12:37 - Subjective Subjective: Patient recovering well. Discussed with patient the fact he will most likely need chemotherapy.Should follow with Oncology Objective - Vital Signs/Intake and Output Vital Signs (last 24 hours): Temp Pulse Resp BP Pulse Ox 98.9 F 66 20 124/65 99 08/09/18 08:04 08/09/18 08:04 08/09/18 08:04 08/09/18 08:04 08/09/18 08:04 Intake and Output: 08/09/18 08/09/18 06:59 18:59 Output Total 800 Balance -800 - Medications Medications: Current Medications Enoxaparin Sodium (Lovenox) 40 mg SC DAILY [facility]; Protocol Last Admin: 08/08/18 11:35 Dose: Not Given Epoetin Manolo (Procrit) 10,000 unit SC F [facility] Last Admin: 08/09/18 10:03 Dose: 10,000 unit Hydromorphone HCl (Dilaudid) 1 mg IVP Q3 PRN PRN Reason: Pain, severe (8-10) Last Admin: 08/09/18 05:15 Dose: 1 mg Iron Sucrose 100 mg/ Sodium (Chloride) 105 mls @ 105 mls/hr IVPB DAILY [facility] Last Admin: 08/09/18 09:55 Dose: 105 mls/hr Sodium Chloride (Sodium Chloride 0.9%) 1,000 mls @ 1,000 mls/hr IV .Q1H PRN PRN Reason: Hypotension Lactated Ringer's (Lactated Ringer's) 1,000 mls @ 150 mls/hr IV .Q6H40M [facility] Last Admin: 08/09/18 10:02 Dose: 150 mls/hr Naloxone HCl (Narcan) 0.1 mg IVP Q2M PRN PRN Reason: Shortness of Breath Ondansetron HCl (Zofran Inj) 4 mg IVP Q6 PRN PRN Reason: Nausea/Vomiting Last Admin: 08/08/18 18:29 Dose: 4 mg Pantoprazole Sodium (Protonix Inj) 40 mg IVP DAILY [facility] Last Admin: 08/09/18 09:56 Dose: 40 mg - Labs Labs: 08/09/18 05:45 08/09/18 05:45 PT 13.3 Seconds (9.8-13.1) H 08/07/18 05:25 INR 1.2 08/07/18 05:25 APTT 32.9 Seconds (25.6-37.1) 08/07/18 05:25 Assessment and Plan (1) Mass of colon Status: Acute
--- NOTE | 2018-08-09 15:18 | CP.PCM.PN ---
Subjective - Date & Time of Evaluation Date of Evaluation: 08/09/18 - Subjective Subjective: F/U S/P R Hemicolectomy. Post surgical abdominal pain improved. Objective - Vital Signs/Intake and Output Vital Signs (last 24 hours): Temp Pulse Resp BP Pulse Ox 98.9 F 66 20 124/65 99 08/09/18 08:04 08/09/18 08:04 08/09/18 08:04 08/09/18 08:04 08/09/18 08:04 Intake and Output: 08/09/18 08/09/18 06:59 18:59 Output Total 800 Balance -800 - Medications Medications: Current Medications Enoxaparin Sodium (Lovenox) 40 mg SC DAILY [facility]; Protocol Last Admin: 08/08/18 11:35 Dose: Not Given Epoetin Manolo (Procrit) 10,000 unit SC MWF [facility] Last Admin: 08/09/18 10:03 Dose: 10,000 unit Hydromorphone HCl (Dilaudid) 1 mg IVP Q3 PRN PRN Reason: Pain, severe (8-10) Last Admin: 08/09/18 13:44 Dose: 1 mg Iron Sucrose 100 mg/ Sodium (Chloride) 105 mls @ 105 mls/hr IVPB DAILY [facility] Last Admin: 08/09/18 09:55 Dose: 105 mls/hr Sodium Chloride (Sodium Chloride 0.9%) 1,000 mls @ 1,000 mls/hr IV .Q1H PRN PRN Reason: Hypotension Lactated Ringer's (Lactated Ringer's) 1,000 mls @ 150 mls/hr IV .Q6H40M [facility] Last Admin: 08/09/18 10:02 Dose: 150 mls/hr Naloxone HCl (Narcan) 0.1 mg IVP Q2M PRN PRN Reason: Shortness of Breath Ondansetron HCl (Zofran Inj) 4 mg IVP Q6 PRN PRN Reason: Nausea/Vomiting Last Admin: 08/08/18 18:29 Dose: 4 mg Pantoprazole Sodium (Protonix Inj) 40 mg IVP DAILY [facility] Last Admin: 08/09/18 09:56 Dose: 40 mg - Labs Labs: 08/09/18 05:45 08/09/18 05:45 PT 13.3 Seconds (9.8-13.1) H 08/07/18 05:25 INR 1.2 08/07/18 05:25 APTT 32.9 Seconds (25.6-37.1) 08/07/18 05:25 - Constitutional Appears: No Acute Distress - Head Exam Head Exam: NORMAL INSPECTION - Eye Exam Eye Exam: PERRL - ENT Exam ENT Exam: Normal Exam - Neck Exam Neck Exam: Normal Inspection - Respiratory Exam Respiratory Exam: NORMAL BREATHING PATTERN - Cardiovascular Exam Cardiovascular Exam: REGULAR RHYTHM - Extremities Exam Extremities Exam: Normal Inspection - Back Exam Back Exam: NORMAL INSPECTION - Neurological Exam Neurological Exam: Alert, Oriented x3 - Psychiatric Exam Psychiatric exam: Normal Mood - Skin Skin Exam: Warm Assessment and Plan (1) Status post right hemicolectomy Status: Acute (2) Colon adenocarcinoma Status: Acute (3) Abdominal pain Status: Acute (4) Anemia Status: Acute - Assessment and Plan (Free Text) Plan: IV fluid, Dilaudid and rest of Tx. Hgb 7.9 repeat CBC at 6pm, f/u Surgical /GI individual pension consultant.
[2018-08-10] MEDS: Lactated Ringer's 1,000 ML IV SCH ×5 (00:10→21:11)
[2018-08-10 07:03] LABS: BASO % 0.2 % (0.0-2.0); EOS # 0.3 K/uL (0.0-0.7); EOS % 4.3 % (0.0-4.0); HEMOGLOBIN 8.4 g/dL (12.0-18.0); LYMPH % 13.3 % (20.0-40.0); MEAN CELL VOLUME 69.8 fl (80.0-94.0); MEAN CORPUSCULAR HEMOGLOBIN 21.2 pg (27.0-31.0); MEAN CORPUSCULAR HGB CONC 30.3 g/dL (33.0-37.0); MEAN PLATELET VOLUME 8.1 fl (7.2-11.7); MONO # 0.6 K/uL (0.0-0.8); MONO % 8.3 % (0.0-10.0); NEUT # 5.4 K/uL (1.8-7.0); NEUT % 73.9 % (50.0-75.0); RBC 3.96 Mil/uL (4.40-5.90); RED CELL DISTRIBUTION WIDTH 17.9 % (11.5-14.5); WHITE BLOOD COUNT 7.3 K/uL (4.8-10.8)
--- NOTE | 2018-08-10 07:44 | CP.PCM.PN ---
Subjective - Date & Time of Evaluation Date of Evaluation: 08/10/18 Time of Evaluation: 07:42 - Subjective Subjective: Surgery: Dr. Carter Pt seen and examined. No acute overnight events. States he feels ok and pain is well controlled with the pain medication. Pt admits to tolerating liquids and states he would like to eat solid food. Admits to some "rumbling" in his belly but denies flatus/BM. Ambulating, denies N/V, F/C. Objective - Vital Signs/Intake and Output Vital Signs (last 24 hours): Temp Pulse Resp BP Pulse Ox 100.0 F H 83 20 129/86 98 08/09/18 23:40 08/09/18 23:40 08/09/18 23:40 08/09/18 23:40 08/09/18 23:40 - Medications Medications: Current Medications Enoxaparin Sodium (Lovenox) 40 mg SC DAILY [facility]; Protocol Last Admin: 08/08/18 11:35 Dose: Not Given Epoetin Manolo (Procrit) 10,000 unit SC [facility] Last Admin: 08/09/18 10:03 Dose: 10,000 unit Hydromorphone HCl (Dilaudid) 1 mg IVP Q3 PRN PRN Reason: Pain, severe (8-10) Last Admin: 08/10/18 03:13 Dose: 1 mg Iron Sucrose 100 mg/ Sodium (Chloride) 105 mls @ 105 mls/hr IVPB DAILY [facility] Last Admin: 08/09/18 09:55 Dose: 105 mls/hr Sodium Chloride (Sodium Chloride 0.9%) 1,000 mls @ 1,000 mls/hr IV .Q1H PRN PRN Reason: Hypotension Lactated Ringer's (Lactated Ringer's) 1,000 mls @ 150 mls/hr IV .Q6H40M [facility] Last Admin: 08/10/18 06:41 Dose: 150 mls/hr Naloxone HCl (Narcan) 0.1 mg IVP Q2M PRN PRN Reason: Shortness of Breath Ondansetron HCl (Zofran Inj) 4 mg IVP Q6 PRN PRN Reason: Nausea/Vomiting Last Admin: 08/08/18 18:29 Dose: 4 mg Pantoprazole Sodium (Protonix Inj) 40 mg IVP DAILY [facility] Last Admin: 08/09/18 09:56 Dose: 40 mg - Labs Labs: 08/10/18 05:25 08/09/18 05:45 PT 13.3 Seconds (9.8-13.1) H 08/07/18 05:25 INR 1.2 08/07/18 05:25 APTT 32.9 Seconds (25.6-37.1) 08/07/18 05:25 - Constitutional Appears: Well, No Acute Distress - Head Exam Head Exam: ATRAUMATIC, NORMOCEPHALIC - Eye Exam Eye Exam: Normal appearance - ENT Exam ENT Exam: Mucous Membranes Moist - Respiratory Exam Respiratory Exam: NORMAL BREATHING PATTERN - Cardiovascular Exam Cardiovascular Exam: RRR - GI/Abdominal Exam GI & Abdominal Exam: Soft, Tenderness (around midline incision, clean/dry/intact with shayne in place ). absent: Distended, Guarding, Rebound - Neurological Exam Neurological Exam: Alert, Awake, Oriented x3 - Skin Skin Exam: Dry, Warm Assessment and Plan - Assessment and Plan (Free Text) Assessment: 42M with colon adenocarcinoma s/p lap hand assist R hemicolectomy; POD#3 Plan: - pathology shows moderately differentiated adenocarcinoma without any lymph node invasion; Stage IIA - will advance diet slowly as tolerated - monitor bowel function - wean off IV pain meds - encourage ambulation & IS - DVT PPX - d/w Dr. Raul Back
[2018-08-10 08:12] LABS: ALB/GLOB RATIO 1.1 (1.0-2.1); ALBUMIN 3.6 g/dL (3.5-5.0); ALT/SGPT 33 U/L (21-72); AST/SGOT 38 U/L (17-59); BLOOD UREA NITROGEN 4 mg/dl (9-20); CALCIUM 8.6 mg/dL (8.4-10.2); GFR NON-AFRICAN AMERICAN > 60
[2018-08-10] MEDS: Enoxaparin 40 mg Syringe SC SCH (09:57)
[2018-08-10] MEDS: Oxycodone/Acetaminophen 5/325 mg Tab PO PRN ×3 (09:58→20:44)
--- NOTE | 2018-08-10 16:54 | CP.PCM.PN ---
Subjective - Date & Time of Evaluation Date of Evaluation: 08/10/18 - Subjective Subjective: F/U Colon Ca/S/P Hemicolectomy. Pt with no abdominal pain now, on clear fluid. Objective - Vital Signs/Intake and Output Vital Signs (last 24 hours): Temp Pulse Resp BP Pulse Ox 98.2 F 55 L 20 101/54 L 100 08/10/18 08:12 08/10/18 08:12 08/10/18 08:12 08/10/18 08:12 08/10/18 08:12 - Medications Medications: Current Medications Enoxaparin Sodium (Lovenox) 40 mg SC DAILY [facility]; Protocol Last Admin: 08/10/18 09:57 Dose: 40 mg Epoetin Manolo (Procrit) 10,000 unit SC [facility] Last Admin: 08/09/18 10:03 Dose: 10,000 unit Iron Sucrose 100 mg/ Sodium (Chloride) 105 mls @ 105 mls/hr IVPB DAILY [facility] Last Admin: 08/10/18 09:56 Dose: 105 mls/hr Sodium Chloride (Sodium Chloride 0.9%) 1,000 mls @ 1,000 mls/hr IV .Q1H PRN PRN Reason: Hypotension Lactated Ringer's (Lactated Ringer's) 1,000 mls @ 75 mls/hr IV .[id number] [facility] Stop: 08/12/18 07:52 Last Admin: 08/10/18 13:03 Dose: Not Given Morphine Sulfate (Morphine) 4 mg IVP Q6 PRN PRN Reason: Pain, severe (8-10) Naloxone HCl (Narcan) 0.1 mg IVP Q2M PRN PRN Reason: Shortness of Breath Ondansetron HCl (Zofran Inj) 4 mg IVP Q6 PRN PRN Reason: Nausea/Vomiting Last Admin: 08/08/18 18:29 Dose: 4 mg Oxycodone/Acetaminophen (Percocet 5/325 Mg Tab) 1 tab PO Q4 PRN PRN Reason: Pain, moderate (4-7) Stop: 08/13/18 07:50 Last Admin: 08/10/18 15:16 Dose: 1 tab Pantoprazole Sodium (Protonix Inj) 40 mg IVP DAILY [facility] Last Admin: 08/10/18 09:57 Dose: 40 mg - Labs Labs: 08/10/18 05:25 08/10/18 05:25 PT 13.3 Seconds (9.8-13.1) H 08/07/18 05:25 INR 1.2 08/07/18 05:25 APTT 32.9 Seconds (25.6-37.1) 08/07/18 05:25 - Constitutional Appears: No Acute Distress - Head Exam Head Exam: NORMAL INSPECTION - Eye Exam Eye Exam: PERRL - ENT Exam ENT Exam: Normal Exam - Neck Exam Neck Exam: Normal Inspection - Respiratory Exam Respiratory Exam: Clear to Ausculation Bilateral - Cardiovascular Exam Cardiovascular Exam: REGULAR RHYTHM - GI/Abdominal Exam GI & Abdominal Exam: Tenderness (around midline incision site with shayne in place.) - Extremities Exam Extremities Exam: Normal Inspection - Back Exam Back Exam: NORMAL INSPECTION - Neurological Exam Neurological Exam: Alert, Oriented x3 - Psychiatric Exam Psychiatric exam: Normal Mood - Skin Skin Exam: Warm Assessment and Plan (1) Status post right hemicolectomy Status: Acute (2) Colon adenocarcinoma Status: Acute (3) Abdominal pain Status: Acute (4) Anemia Status: Acute - Assessment and Plan (Free Text) Plan: On clear fluid, continue Lovenox, Morphine, Procrit, Protonix and rest of Tx.
[2018-08-11] MEDS: Oxycodone/Acetaminophen 5/325 mg Tab PO PRN ×3 (01:25→15:51)
[2018-08-11 07:33] LABS: HEMOGLOBIN 7.8 g/dL (12.0-18.0); MEAN CELL VOLUME 69.7 fl (80.0-94.0); MEAN CORPUSCULAR HEMOGLOBIN 21.3 pg (27.0-31.0); MEAN CORPUSCULAR HGB CONC 30.5 g/dL (33.0-37.0); RBC 3.67 Mil/uL (4.40-5.90); RED CELL DISTRIBUTION WIDTH 18.6 % (11.5-14.5); WHITE BLOOD COUNT 5.2 K/uL (4.8-10.8)
--- NOTE | 2018-08-11 07:37 | CP.PCM.PN ---
Subjective - Date & Time of Evaluation Date of Evaluation: 08/11/18 Time of Evaluation: 07:35 - Subjective Subjective: Surgery: Dr. Carter Pt seen and examined. No acute overnight events. Pt with post-op pain around the incision but denies other complaints. Tolerating CLD and denies flatus/BM but feels that he has the "urge to go." Denies fevers/chills, nausea/vomiting. Ambulating. Objective - Vital Signs/Intake and Output Vital Signs (last 24 hours): Temp Pulse Resp BP Pulse Ox 98.3 F 69 20 118/81 100 08/10/18 22:47 08/10/18 22:47 08/10/18 22:47 08/10/18 22:47 08/10/18 22:47 - Medications Medications: Current Medications Enoxaparin Sodium (Lovenox) 40 mg SC DAILY [facility]; Protocol Last Admin: 08/10/18 09:57 Dose: 40 mg Epoetin Manolo (Procrit) 10,000 unit SC MWF [facility] Last Admin: 08/09/18 10:03 Dose: 10,000 unit Iron Sucrose 100 mg/ Sodium (Chloride) 105 mls @ 105 mls/hr IVPB DAILY [facility] Last Admin: 08/10/18 09:56 Dose: 105 mls/hr Sodium Chloride (Sodium Chloride 0.9%) 1,000 mls @ 1,000 mls/hr IV .Q1H PRN PRN Reason: Hypotension Lactated Ringer's (Lactated Ringer's) 1,000 mls @ 75 mls/hr IV .[id number] [facility] Stop: 08/12/18 07:52 Last Admin: 08/10/18 21:11 Dose: Not Given Morphine Sulfate (Morphine) 4 mg IVP Q6 PRN PRN Reason: Pain, severe (8-10) Naloxone HCl (Narcan) 0.1 mg IVP Q2M PRN PRN Reason: Shortness of Breath Ondansetron HCl (Zofran Inj) 4 mg IVP Q6 PRN PRN Reason: Nausea/Vomiting Last Admin: 08/08/18 18:29 Dose: 4 mg Oxycodone/Acetaminophen (Percocet 5/325 Mg Tab) 1 tab PO Q4 PRN PRN Reason: Pain, moderate (4-7) Stop: 08/13/18 07:50 Last Admin: 08/11/18 01:25 Dose: 1 tab Pantoprazole Sodium (Protonix Inj) 40 mg IVP DAILY [facility] Last Admin: 08/10/18 09:57 Dose: 40 mg - Labs Labs: 08/10/18 05:25 08/10/18 05:25 PT 13.3 Seconds (9.8-13.1) H 08/07/18 05:25 INR 1.2 08/07/18 05:25 APTT 32.9 Seconds (25.6-37.1) 08/07/18 05:25 - Constitutional Appears: Well, No Acute Distress - Head Exam Head Exam: ATRAUMATIC, NORMOCEPHALIC - Eye Exam Eye Exam: Normal appearance - ENT Exam ENT Exam: Mucous Membranes Moist - Respiratory Exam Respiratory Exam: NORMAL BREATHING PATTERN - Cardiovascular Exam Cardiovascular Exam: RRR - GI/Abdominal Exam GI & Abdominal Exam: Soft, Tenderness (around midline incision, clean/dry/intact with shayne in place ). absent: Distended, Guarding - Extremities Exam Extremities Exam: absent: Calf Tenderness - Neurological Exam Neurological Exam: Alert, Awake, Oriented x3 - Skin Skin Exam: Dry, Warm Assessment and Plan - Assessment and Plan (Free Text) Assessment: 42M s/p lap hand assist R hemicolectomy for Stage IIA colon adenocarcinoma; POD#4 Plan: - advance to FLD; will slowly advance as tolerated - monitor bowel function - encourage ambulation & incentive spirometry - PO pain control - d/w Dr. Raul Back
[2018-08-11] MEDS: Enoxaparin 40 mg Syringe SC SCH (09:38)
[2018-08-11] MEDS: Lactated Ringer's 1,000 ML IV SCH (12:13)
[2018-08-11 12:27] LABS: HEMOGLOBIN 8.5 g/dL (12.0-18.0); MEAN CELL VOLUME 69.7 fl (80.0-94.0); MEAN CORPUSCULAR HEMOGLOBIN 21.3 pg (27.0-31.0); MEAN CORPUSCULAR HGB CONC 30.6 g/dL (33.0-37.0); RED CELL DISTRIBUTION WIDTH 18.7 % (11.5-14.5); WHITE BLOOD COUNT 6.4 K/uL (4.8-10.8)
--- NOTE | 2018-08-11 15:42 | CP.PCM.PN ---
Subjective - Date & Time of Evaluation Date of Evaluation: 08/11/18 - Subjective Subjective: F/U Colon Ca. S/P Hemicolectomy No abdominal pain, on regular food. Objective - Vital Signs/Intake and Output Vital Signs (last 24 hours): Temp Pulse Resp BP Pulse Ox 98 F 65 20 128/77 100 08/11/18 08:27 08/11/18 08:27 08/11/18 08:27 08/11/18 08:27 08/11/18 08:27 - Medications Medications: Current Medications Enoxaparin Sodium (Lovenox) 40 mg SC DAILY [facility]; Protocol Last Admin: 08/11/18 09:38 Dose: 40 mg Epoetin Manolo (Procrit) 10,000 unit SC MWF [facility] Last Admin: 08/09/18 10:03 Dose: 10,000 unit Iron Sucrose 100 mg/ Sodium (Chloride) 105 mls @ 105 mls/hr IVPB DAILY [facility] Last Admin: 08/11/18 09:41 Dose: 105 mls/hr Sodium Chloride (Sodium Chloride 0.9%) 1,000 mls @ 1,000 mls/hr IV .Q1H PRN PRN Reason: Hypotension Lactated Ringer's (Lactated Ringer's) 1,000 mls @ 75 mls/hr IV .[id number] [facility] Stop: 08/12/18 07:52 Last Admin: 08/11/18 12:13 Dose: Not Given Morphine Sulfate (Morphine) 4 mg IVP Q6 PRN PRN Reason: Pain, severe (8-10) Last Admin: 08/11/18 12:23 Dose: 4 mg Naloxone HCl (Narcan) 0.1 mg IVP Q2M PRN PRN Reason: Shortness of Breath Ondansetron HCl (Zofran Inj) 4 mg IVP Q6 PRN PRN Reason: Nausea/Vomiting Last Admin: 08/08/18 18:29 Dose: 4 mg Oxycodone/Acetaminophen (Percocet 5/325 Mg Tab) 1 tab PO Q4 PRN PRN Reason: Pain, moderate (4-7) Stop: 08/13/18 07:50 Last Admin: 08/11/18 07:54 Dose: 1 tab Pantoprazole Sodium (Protonix Inj) 40 mg IVP DAILY [facility] Last Admin: 08/11/18 09:41 Dose: 40 mg - Labs Labs: 08/11/18 12:20 08/10/18 05:25 PT 13.3 Seconds (9.8-13.1) H 08/07/18 05:25 INR 1.2 08/07/18 05:25 APTT 32.9 Seconds (25.6-37.1) 08/07/18 05:25 - Constitutional Appears: No Acute Distress - Head Exam Head Exam: NORMAL INSPECTION - Eye Exam Eye Exam: PERRL - ENT Exam ENT Exam: Normal Exam - Neck Exam Neck Exam: Normal Inspection - Respiratory Exam Respiratory Exam: Clear to Ausculation Bilateral - Cardiovascular Exam Cardiovascular Exam: REGULAR RHYTHM - GI/Abdominal Exam GI & Abdominal Exam: Tenderness (arouns midline incision site), Normal Bowel Sounds - Extremities Exam Extremities Exam: Normal Inspection - Back Exam Back Exam: NORMAL INSPECTION - Neurological Exam Neurological Exam: Alert, Oriented x3 - Psychiatric Exam Psychiatric exam: Normal Mood - Skin Skin Exam: Warm Assessment and Plan (1) Status post right hemicolectomy Status: Acute (2) Colon adenocarcinoma Status: Acute (3) Abdominal pain Status: Acute (4) Anemia Status: Acute - Assessment and Plan (Free Text) Plan: Monitor Pt on regular food, continue Morphine, Lovenox, Procrit and rest of tx.
[2018-08-12] MEDS: Oxycodone/Acetaminophen 5/325 mg Tab PO PRN (00:48)
--- NOTE | 2018-08-12 07:37 | CP.PCM.PN ---
Subjective - Date & Time of Evaluation Date of Evaluation: 08/12/18 Time of Evaluation: 07:35 - Subjective Subjective: Surgery: Dr. Carter Pt seen and examined. No acute overnight events. States he feels well overall and has post-op pain that's controlled with the pain meds at the time. He was able to tolerate a regular diet and had a BM yesterday with flatus. Denies nausea/vomiting, fevers/chills. Objective - Vital Signs/Intake and Output Vital Signs (last 24 hours): Temp Pulse Resp BP Pulse Ox 99.0 F 71 20 128/72 100 08/11/18 23:51 08/11/18 23:51 08/11/18 23:51 08/11/18 23:51 08/11/18 23:51 - Medications Medications: Current Medications Enoxaparin Sodium (Lovenox) 40 mg SC DAILY [facility]; Protocol Last Admin: 08/11/18 09:38 Dose: 40 mg Epoetin Manolo (Procrit) 10,000 unit SC MWF [facility] Last Admin: 08/09/18 10:03 Dose: 10,000 unit Iron Sucrose 100 mg/ Sodium (Chloride) 105 mls @ 105 mls/hr IVPB DAILY [facility] Last Admin: 08/11/18 09:41 Dose: 105 mls/hr Sodium Chloride (Sodium Chloride 0.9%) 1,000 mls @ 1,000 mls/hr IV .Q1H PRN PRN Reason: Hypotension Lactated Ringer's (Lactated Ringer's) 1,000 mls @ 75 mls/hr IV .[id number] [facility] Stop: 08/12/18 07:52 Last Admin: 08/11/18 12:13 Dose: Not Given Morphine Sulfate (Morphine) 4 mg IVP Q6 PRN PRN Reason: Pain, severe (8-10) Last Admin: 08/11/18 21:28 Dose: 4 mg Naloxone HCl (Narcan) 0.1 mg IVP Q2M PRN PRN Reason: Shortness of Breath Ondansetron HCl (Zofran Inj) 4 mg IVP Q6 PRN PRN Reason: Nausea/Vomiting Last Admin: 08/08/18 18:29 Dose: 4 mg Oxycodone/Acetaminophen (Percocet 5/325 Mg Tab) 1 tab PO Q4 PRN PRN Reason: Pain, moderate (4-7) Stop: 08/13/18 07:50 Last Admin: 08/12/18 00:48 Dose: 1 tab Pantoprazole Sodium (Protonix Inj) 40 mg IVP DAILY [facility] Last Admin: 08/11/18 09:41 Dose: 40 mg - Labs Labs: 08/11/18 12:20 08/10/18 05:25 PT 13.3 Seconds (9.8-13.1) H 08/07/18 05:25 INR 1.2 08/07/18 05:25 APTT 32.9 Seconds (25.6-37.1) 08/07/18 05:25 - Constitutional Appears: Well, No Acute Distress - Head Exam Head Exam: ATRAUMATIC, NORMOCEPHALIC - Eye Exam Eye Exam: Normal appearance - ENT Exam ENT Exam: Mucous Membranes Moist - Respiratory Exam Respiratory Exam: NORMAL BREATHING PATTERN - Cardiovascular Exam Cardiovascular Exam: RRR - GI/Abdominal Exam GI & Abdominal Exam: Soft. absent: Distended, Guarding, Tenderness, Rebound - Neurological Exam Neurological Exam: Alert, Awake, Oriented x3 - Skin Skin Exam: Dry, Warm Assessment and Plan - Assessment and Plan (Free Text) Assessment: 42M s/p lap hand assist R hemicolectomy for colon adenocarcinoma; Stage IIA Plan: - pt having BMs and tolerating regular diet; can be DC from surgical standpoint later today - f/u in the office in [address] Deutsch - no heavy lifting > 15lbs for 4-6 weeks - d/w Dr. Raul Back
[2018-08-12 09:11] LABS: HEMOGLOBIN 8.7 g/dL (12.0-18.0); MEAN CELL VOLUME 69.8 fl (80.0-94.0); MEAN CORPUSCULAR HEMOGLOBIN 21.7 pg (27.0-31.0); MEAN CORPUSCULAR HGB CONC 31.1 g/dL (33.0-37.0); RBC 4.02 Mil/uL (4.40-5.90); RED CELL DISTRIBUTION WIDTH 19.5 % (11.5-14.5); WHITE BLOOD COUNT 5.3 K/uL (4.8-10.8)
[2018-08-12] MEDS: oxyCODONE 10 mg Immediate Release Tab PO PRN ×2 (09:36→16:08)
[2018-08-12] MEDS: Enoxaparin 40 mg Syringe SC SCH (09:37)
[2018-08-12] MEDS: EPOETIN ALFA 10,000 UNIT/ML ML SC SCH (09:38)
--- NOTE | 2018-08-12 09:41 | CP.PCM.PN ---
Subjective - Date & Time of Evaluation Date of Evaluation: 08/12/18 Time of Evaluation: 09:34 - Subjective Subjective: General Surgery Pt seen and examined this AM. Tolerating PO intake of regular diet. (+) bm, (+) flatus. Afebrile. Pt c/o pain but has been able to ambulate with some discomfort. Labs and vitals noted. Hgb stable PE Gen: Pt sitting in bed eating breakfast in NAD Cardio: s1s2 RRR Lungs: CTA bilaterally Abd: Soft (+) mild tenderness surrounding stapled incisions (-) distention Extr: (-) calf tenderness A/P POD 5 s/p laparoscopic hand assisted right hemicolectomy for colon adenocarcinoma Continue regular diet Pt cleared for discharge from surgical standpoint Pt to follow up with Dr. Deutsch in the office in 10-14 days Objective - Vital Signs/Intake and Output Vital Signs (last 24 hours): Temp Pulse Resp BP Pulse Ox 98.4 F 68 20 131/77 94 L 08/12/18 08:15 08/12/18 08:15 08/12/18 08:15 08/12/18 08:15 08/12/18 08:15 - Medications Medications: Current Medications Enoxaparin Sodium (Lovenox) 40 mg SC DAILY [facility]; Protocol Last Admin: 08/11/18 09:38 Dose: 40 mg Epoetin Manolo (Procrit) 10,000 unit SC MWF [facility] Last Admin: 08/09/18 10:03 Dose: 10,000 unit Iron Sucrose 100 mg/ Sodium (Chloride) 105 mls @ 105 mls/hr IVPB DAILY [facility] Last Admin: 08/11/18 09:41 Dose: 105 mls/hr Sodium Chloride (Sodium Chloride 0.9%) 1,000 mls @ 1,000 mls/hr IV .Q1H PRN PRN Reason: Hypotension Naloxone HCl (Narcan) 0.1 mg IVP Q2M PRN PRN Reason: Shortness of Breath Ondansetron HCl (Zofran Inj) 4 mg IVP Q6 PRN PRN Reason: Nausea/Vomiting Last Admin: 08/08/18 18:29 Dose: 4 mg Oxycodone HCl (Oxycodone Immediate Release Tab) 10 mg PO Q6 PRN PRN Reason: Pain, moderate (4-7) Pantoprazole Sodium (Protonix Inj) 40 mg IVP DAILY [facility] Last Admin: 08/11/18 09:41 Dose: 40 mg - Labs Labs: 08/12/18 09:04 08/10/18 05:25 PT 13.3 Seconds (9.8-13.1) H 08/07/18 05:25 INR 1.2 08/07/18 05:25 APTT 32.9 Seconds (25.6-37.1) 08/07/18 05:25
[2018-08-12 16:19] VITALS: BP 134/86; PULSE 67; RESP 18; TEMP 98.6; O2SAT 100
--- NOTE | 2018-08-12 18:00 | CP.PCM.DIS ---
Provider - Provider Date of Admission: 08/01/18 23:09 Attending physician: Cristino Hoffmann MD Diagnosis - Discharge Diagnosis (1) Status post right hemicolectomy Status: Acute (2) Colon adenocarcinoma Status: Acute (3) Abdominal pain Status: Acute Priority: High (4) Anemia Status: Acute Hospital Course - Lab Results Lab Results: Micro Results 08/02/18 05:45 Blood-Venous Blood Culture - Final NO GROWTH AFTER 5 DAYS 08/02/18 05:45 Blood-Venous Gram Stain - Final TEST NOT PERFORMED 08/02/18 05:15 Blood-Venous Blood Culture - Final NO GROWTH AFTER 5 DAYS 08/02/18 05:15 Blood-Venous Gram Stain - Final TEST NOT PERFORMED Most Recent Lab Values WBC 5.3 K/uL (4.8-10.8) 08/12/18 09:04 RBC 4.02 Mil/uL (4.40-5.90) L 08/12/18 09:04 Hgb 8.7 g/dL (12.0-18.0) L 08/12/18 09:04 Hct 28.1 % (35.0-51.0) L 08/12/18 09:04 MCV 69.8 fl (80.0-94.0) L 08/12/18 09:04 MCH 21.7 pg (27.0-31.0) L 08/12/18 09:04 MCHC 31.1 g/dL (33.0-37.0) L 08/12/18 09:04 RDW 19.5 % (11.5-14.5) H 08/12/18 09:04 Plt Count 365 K/uL (130-400) 08/12/18 09:04 MPV 8.1 fl (7.2-11.7) 08/10/18 05:25 Neut % (Auto) 73.9 % (50.0-75.0) 08/10/18 05:25 Lymph % (Auto) 13.3 % (20.0-40.0) L 08/10/18 05:25 [place] % (Auto) 8.3 % (0.0-10.0) 08/10/18 05:25 Eos % (Auto) 4.3 % (0.0-4.0) H 08/10/18 05:25 Baso % (Auto) 0.2 % (0.0-2.0) 08/10/18 05:25 Neut # (Auto) 5.4 K/uL (1.8-7.0) 08/10/18 05:25 Lymph # (Auto) 1.0 K/uL (1.0-4.3) 08/10/18 05:25 [place] # (Auto) 0.6 K/uL (0.0-0.8) 08/10/18 05:25 Eos # (Auto) 0.3 K/uL (0.0-0.7) 08/10/18 05:25 Baso # (Auto) 0.0 K/uL (0.0-0.2) 08/10/18 05:25 Neutrophils % (Manual) 86 % (42-75) H 08/09/18 05:45 Lymphocytes % (Manual) 8 % (20-50) L 08/09/18 05:45 Monocytes % (Manual) 3 % (0-10) 08/09/18 05:45 Eosinophils % (Manual) 3 % (0-7) 08/09/18 05:45 Platelet Estimate Normal (NORMAL) 08/09/18 05:45 Large Platelets Present 08/09/18 05:45 Hypochromasia (manual) Moderate 08/09/18 05:45 Poikilocytosis (manual Slight 08/09/18 05:45 Anisocytosis (manual) Moderate 08/09/18 05:45 Microcytosis (manual) Slight 08/09/18 05:45 Macrocytosis (manual) Slight 08/09/18 05:45 Tear Drop Cells Slight 08/09/18 05:45 Ovalocytes Moderate 08/09/18 05:45 PT 13.3 Seconds (9.8-13.1) H 08/07/18 05:25 INR 1.2 08/07/18 05:25 APTT 32.9 Seconds (25.6-37.1) 08/07/18 05:25 Sodium 139 mmol/l (132-148) 08/10/18 05:25 Potassium 4.0 MMOL/L (3.6-5.0) 08/10/18 05:25 Chloride 102 mmol/L (98-107) 08/10/18 05:25 Carbon Dioxide 28 mmol/L (22-30) 08/10/18 05:25 Anion Gap 13 (10-20) 08/10/18 05:25 BUN 4 mg/dl (9-20) L 08/10/18 05:25 Creatinine 0.9 mg/dl (0.8-1.5) 08/10/18 05:25 Est GFR ( Amer) > 60 08/10/18 05:25 Est GFR (Non-Af Amer) > 60 08/10/18 05:25 Random Glucose 101 mg/dL (75-110) 08/10/18 05:25 Lactic Acid 1.2 MMOL/L (0.7-2.1) 08/02/18 05:15 Calcium 8.6 mg/dL (8.4-10.2) 08/10/18 05:25 Phosphorus 4.3 mg/dl (2.5-4.5) 08/07/18 05:25 Magnesium 2.9 MG/DL (1.6-2.3) H 08/07/18 05:25 Iron 19 ug/dL (49-181) L 08/05/18 11:30 TIBC 476 ug/dL (250-450) H 08/05/18 11:30 % Saturation 4 % (20-55) L 08/05/18 11:30 Ferritin 9.1 ng/Ml (17.9-464) L 08/05/18 11:30 Total Bilirubin 0.9 mg/dl (0.2-1.3) 08/10/18 05:25 AST 38 U/L (17-59) 08/10/18 05:25 ALT 33 U/L (21-72) 08/10/18 05:25 Alkaline Phosphatase 88 U/L (38-126) 08/10/18 05:25 Total Protein 6.9 G/DL (6.3-8.2) 08/10/18 05:25 Albumin 3.6 g/dL (3.5-5.0) 08/10/18 05:25 Globulin 3.4 gm/dL (2.2-3.9) 08/10/18 05:25 Albumin/Globulin Ratio 1.1 (1.0-2.1) 08/10/18 05:25 Triglycerides 156 mg/DL (0-149) H 08/02/18 11:33 Cholesterol 154 mg/dL (0-199) 08/02/18 11:33 LDL Cholesterol Direct 81 mg/dL (0-129) 08/02/18 11:33 HDL Cholesterol 42 MG/DL (30-70) 08/02/18 11:33 Carcinoembryonic Ag 10.4 ng/mL (0-3.0) H 08/02/18 11:33 Vitamin B12 550 pg/mL (239-931) 08/05/18 11:30 Folate 9.1 ng/mL 08/05/18 11:30 Thyroxine (T4) 8.02 ug/dl (5.5-11.0) 08/02/18 11:33 TSH 3rd Generation 2.54 mIU/ML (0.46-4.68) 08/02/18 11:33 Urine Color Colorless (YELLOW) 08/02/18 05:27 Urine Clarity Clear (Clear) 08/02/18 05:27 Urine pH 6.0 (5.0-8.0) 08/02/18 05:27 Ur Specific [place] 1.005 (1.003-1.030) 08/02/18 05:27 Urine Protein Negative mg/dL (NEGATIVE) 08/02/18 05:27 Urine Glucose (UA) Neg mg/dL (Normal) 08/02/18 05:27 Urine Ketones Negative mg/dL (NEGATIVE) 08/02/18 05:27 Urine Blood Negative (NEGATIVE) 08/02/18 05:27 Urine Nitrate Negative (NEGATIVE) 08/02/18 05:27 Urine Bilirubin Negative (NEGATIVE) 08/02/18 05:27 Urine Urobilinogen 0.2-1.0 mg/dL (0.2-1.0) 08/02/18 05:27 Ur Leukocyte Esterase Neg [place]/uL (Negative) 08/02/18 05:27 Urine RBC (Auto) 1 /hpf (0-3) 08/02/18 05:27 HIV-1 Ab Rapid Screen Non reactive (NON REAC) 08/02/18 11:33 Blood Type O POSITIVE 08/11/18 13:00 Blood Type Confirm O POSITIVE 08/06/18 20:46 Antibody Screen Negative 08/11/18 13:00 Crossmatch See Detail 08/11/18 13:00 BBK History Checked Patient has bt 08/11/18 13:00 Discharge Exam - Head Exam Head Exam: NORMAL INSPECTION Discharge Plan - Discharge Medications Prescriptions: traMADol [Ultram] 50 mg PO Q6 PRN #10 tab PRN Reason: Pain, Moderate (4-7) - Follow Up Plan Condition: STABLE Disposition: HOME/ ROUTINE Instructions: Colectomy Additional Instructions: follow up with primary MD 1 week Referrals: Damian Stroud MD [Staff Provider] - Camilo Deutsch MD [Staff Provider] - Cristino Hoffmann MD [Staff Provider] - Nicolas Inman MD [Staff Provider] -
== END 2018-08-12 17:10 | disposition home or self-care (01) | DRG 148 ==
LOC: H.ER 16:52 → H.ERHOLD 23:09 → H.MEDSURG1 08-02 05:37
PROVIDERS: ADMIT Internal Medicine Pulmonary Disease; ATTEND Internal Medicine Pulmonary Disease
PROC: 0DDK8ZX Extraction of Ascending Colon, Via Natural or Artificial Opening Endoscopic, Diagnostic (ICD-10-PCS; 2018-08-02)
PROC: 0DDN8ZX Extraction of Sigmoid Colon, Via Natural or Artificial Opening Endoscopic, Diagnostic (ICD-10-PCS; 2018-08-02)
PROC: 0DBU4ZZ Excision of Omentum, Percutaneous Endoscopic Approach (ICD-10-PCS; 2018-08-07)
PROC: 0DTF0ZZ Resection of Right Large Intestine, Open Approach (ICD-10-PCS; principal; 2018-08-07 09:15)
DX: C18.2 Malignant neoplasm of ascending colon (principal); D50.0 Iron deficiency anemia secondary to blood loss (chronic); K56.690 Other partial intestinal obstruction; G89.18 Other acute postprocedural pain; K52.9 Noninfective gastroenteritis and colitis, unspecified; F17.210 Nicotine dependence, cigarettes, uncomplicated; F10.10 Alcohol abuse, uncomplicated; Z53.31 Laparoscopic surgical procedure converted to open procedure